=== PATIENT | male | born 1965 | race Caucasian/White ===

== ENCOUNTER 2016-10-30 13:15 | Inpatient (IN) ==
--- NOTE | 2016-10-30 13:48 | Emergency Department Note ---
Ni Wayne Hilary, am scribing for, and in the presence of, Reese Lei MD 13: 45. Do Wayne James D, MD, personally performed the services described in this documentation, ascribed by Emily Dan in my presence, and it is both accurate and complete [id number] . Arrival - Arrival Chief Complaint: Shortness of Breath Stated Complaint: shortness of breath ED Nursing Triage Note: pt to er 20 via ems coming as a transfer from [facility] er with c/o having sob for 5-6 months, pt was diagnosed with anemia/ chf/ enlarged spleen. pt comes for further eval. Mode of Arrival: Stretcher Limitations: No Limitations Source: Patient, RN Notes Reviewed Time Seen by Provider: 10/30/16 13:33 - History of Present Illness HPI Narrative: Pt is a 50 y/o white male brought into the ED via EMS from [facility] with c/o SOB which onset 5 months ago. Pt confirms SOB, legs swelling, intermittent chest pain but denies melena, blood in vomit or urine. No other complaints or problems stated in the ED. Pt was diagnosed of anemia, CHF and enlarged spleen. He takes Indocin as prescribed for Gout but one month ago started taking Aleve instead . Onset (ago): month(s) Consistency: constant Severity: moderate Severity scale (1-10): 2 Allergies/Adverse Reactions: Allergies Allergy/AdvReac Type Severity Reaction Status Date / Time No Known Allergies Allergy Unverified 10/30/16 13:27 Home Medications: Home Medications Medication Instructions Recorded Confirmed Type No Known Home Medications [No 10/30/16 10/30/16 History Known Home Medications] Review of System - Review of System 12 point system: reviewed and no additional remarkable complaints except as stated - Review of System Constitutional: Absent: fever Respiratory: Present: respiratory distress (SOB) Cardiovascular: Present: chest pain Gastrointestinal: Absent: hematemesis, melena, hematochezia Musculoskeletal: Present: leg pain (swelling) Medical,Surgical,& Family Hx - Medical History Hematology: History of: Anemia - Social History Smoking Status: Never smoker Frequency of Alcohol Use: None Type of Drug Use: None Exam Physical Examination: GENERAL: This is a well-nourished, well-developed in no apparent distress. VITAL SIGNS: Temperature: 97.7 Pulse: 93 Respiratory: 17 Blood Pressure: 131/ 87 O2Sat: 100 HEENT: Head is normocephalic and atraumatic. Pupils are equally round and reactive to light. Extraocular movement are intact. Oropharynx is benign with moist mucous membranes. NECK: Neck is soft and supple without tenderness. There are no masses. There is no lymphadenopathy. LUNGS: Lungs are clear to auscultation bilaterally. Chest rises symmetrically. There is no chest wall tenderness. CV: Heart is regular rate and rhythm without murmurs, rubs, or gallops. ABDOMEN: Abdomen is soft, non-tender to palpation. There are no abnormal masses palpated. There is evidence of spleenomegaly. Bowel sounds are present and active. SKIN: Pallor, Skin is warm and dry. No rash. EXTREMITIES: Patient has full range of motion without tenderness. There is 1+ pitting edema of his lower extremities. NEUROLOGIC: Awake, alert, and oriented x4. Cranial nerves II through XII are grossly intact. There are no motorsensory deficits. PSYCHIATRIC: Normal affect. Normal mood. Vital Signs: Vital Signs Temperature 97.7 F 10/30/16 13:24 Pulse Rate 93 H 10/30/16 13:24 Respiratory Rate 17 10/30/16 13:24 Blood Pressure 131/87 10/30/16 13:24 O2 Sat by Pulse Oximetry 100 10/30/16 13:24 Course - Consultations Consultation #1: Discussed with hospitalist. Patient will be admitted to their service. Patient will undergo blood transfusion. Time: 13:48 Results - Labs CBC & BMP: 10/30/16 14:00 10/30/16 14:00 Lab Results: I have reviewed the patients labs Labs: Reviewed lab performed at [facility]. Laboratory Tests 10/30/16 14:00 WBC 10.4 RBC 3.29 L Hgb 4.7 L* Hct 20.4 L MCV 62.0 L MCH 14 L MCHC 23.0 L RDW 23.7 H Plt Count 481 H Neut % (Auto) 79.5 H Lymph % (Auto) 9.5 L Neut # (Auto) 8.3 H Lymph # (Auto) 1.0 L [place] # (Auto) 0.9 H Percent Retic 5.1 H Retic Hgb Equivalent 13.0 L Laboratory Tests 10/30/16 10/30/16 10/30/16 14:00 14:00 14:20 Sodium 139 Potassium 4.7 Chloride 108 H Carbon Dioxide 21 BUN 29 H Creatinine 1.40 H Calcium 8.1 L Iron 14 L % Saturation 4.7 L Ferritin 5.0 L Total Bilirubin 2.10 H AST 98 H ALT 116 H Alkaline Phosphatase 134 H Troponin I 0.184 H B-Natriuretic Peptide 1287 H Total Protein 5.6 L Albumin 2.7 L Albumin/Globulin Ratio 0.9 L Urine pH 5.0 Ur Specific [place] 1.012 Urine Urobilinogen 2.0 H Urine RBC <1 Urine WBC <1 Urine Opiates Screen Ur Barbiturates Screen Ur Phencyclidine Scrn U Amphetamine/Methamph U Benzodiazepines Scrn U Cocaine Metab Screen U Cannabinoids Screen 10/30/16 14:20 Sodium Potassium Chloride Carbon Dioxide BUN Creatinine Calcium Iron % Saturation Ferritin Total Bilirubin AST ALT Alkaline Phosphatase Troponin I B-Natriuretic Peptide Total Protein Albumin Albumin/Globulin Ratio Urine pH Ur Specific [place] Urine Urobilinogen Urine RBC Urine WBC Urine Opiates Screen Negative Ur Barbiturates Screen Negative Ur Phencyclidine Scrn Negative U Amphetamine/Methamph Positive H U Benzodiazepines Scrn Negative U Cocaine Metab Screen Negative U Cannabinoids Screen Negative Laboratory Tests 10/30/16 10/30/16 10/30/16 14:00 14:00 14:20 Iron 14 L TIBC 296 % Saturation 4.7 L Ferritin 5.0 L Total Bilirubin 2.10 H AST 98 H ALT 116 H Alkaline Phosphatase 134 H Troponin I 0.184 H B-Natriuretic Peptide 1287 H Free T4 1.06 TSH 3rd Generation 1.580 Urine Opiates Screen Negative Ur Barbiturates Screen Negative Ur Phencyclidine Scrn Negative U Amphetamine/Methamph Positive H U Benzodiazepines Scrn Negative U Cocaine Metab Screen Negative U Cannabinoids Screen Negative - EKG EKG results: interpreted by ERMD - Impressions EKG: Normal sinus rhythm with rate of 90, nonspecific ST-T wave changes, normal axis. - Diagnostic Findings Procedure: Chest x-ray: report reviewed by me (Moderate cardiomegaly with the heart having a globular configuration which can be seen with cardiomyopathy or pericardial effusion. Mild CHF) Disposition Clinical Impression: Anemia, Excessive use of nonsteroidal anti-inflammatory drug (NSAID), Methamphetamine abuse, Congestive heart failure, Mild elevation of troponin Case discussed with: patient Disposition: Still a Patient Condition: Critical Time of Disposition: 13:47
--- NOTE | 2016-10-30 14:01 | XRay Report ---
Portable chest Date: 10/30/2016 Clinical history: Shortness of breath Comparison: None Technique: Portable AP sitting chest Findings: The heart is moderately enlarged with a globular configuration. Calcified granulomata/nodes. Minimal diffuse parenchymal findings especially in the lower lung zones. Unremarkable mediastinum with degenerative changes. Impression: Moderate cardiomegaly with the heart having a globular configuration which can be seen with cardiomyopathy or pericardial effusion. Mild CHF. PROCEDURE INTERPRETED AT [facility] Final Report Signed by: Dr. Polina Sumner
--- NOTE | 2016-10-30 14:03 | EKG Report ---
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
[2016-10-30 14:13] LABS: Basophils % 0.2 % (0.0-0.8); Eosinophils # 0.1 10*3/uL (0.0-0.87); Eosinophils % 1.2 % (0.00-10.9); Hematocrit 20.4 VOL% (42.0-52.0); Immature Granulocytes % 0.7 %; Immature Granulocytes Absolute 0.07 #; Lymphocytes % 9.5 % (21.2-54.2); Mean Corpuscular Hemoglobin 14 PG (27-34); Mean Platelet Volume 10.2 FL (9.6-12.0); Monocytes # 0.9 10*3/uL (0.11-0.8); Monocytes % 8.9 % (1.7-12.7); NRBC # 0.18 10*3/uL; Neutrophils # 8.3 10*3/uL (1.4-7.4); Neutrophils % 79.5 % (38.7-73.9); Platelet Count 481 T/CUMM (130-400); Red Blood Count 3.29 MC/CUMM (3.8-5.5); Red Cell Distribution Width 23.7 % (9.3-17.3); White Blood Count 10.4 T/CUMM (4-12)
[2016-10-30 14:27] LABS: Hemoglobin 4.7 GM/DL (14.0-18.0)
[2016-10-30 14:36] LABS: Apearance,Urine CLEAR (Clear); Bilirubin,Urine Negative (Negative); Blood, Urine Negative (Negative); Glucose,Urine (UA) Negative (Negative); Ketones,Urine Negative (Negative); Mucus,Urine Occasional /LPF (Occasional); Nitrite,Urine Negative (Negative); Protein,Urine Negative; RBC,Urine <1 /HPF (0-4); Urine Color Yellow (Yellow); Urine Specific Gravity 1.012 (1.001-1.035); WBC,Urine <1 /HPF (0-6)
[2016-10-30 14:42] LABS: % Iron Saturation 4.7 % (18-50); Albumin 2.7 G/DL (3.4-5.0); Bilirubin,Total 2.1 MG/DL (0.2-1.0); Calcium 8.1 MG/DL (8.5-10.1); Free T4 (Free Thyroxine) 1.06 NG/DL (0.76-1.46); Osmolality,Calculated 282.5 MOS/KG (273-304); Potassium 4.7 MMOL/L (3.5-5.1); Thyroid Stimulating Hormone 1.58 uIU/ml (0.358-3.74); Total Protein 5.6 G/DL (6.4-8.3); Troponin I Only 0.184 NG/ML (0.00-0.045)
[2016-10-30 14:44] LABS: Folate 19.1 NG/ML (5.4-24.0)
[2016-10-30 14:53] LABS: Barbiturates Screen,Urine Negative (Negative); Benzodiazepines Screen,Urine Negative (Negative); Cannabinoid Screen,Urine Negative (Negative); Opiate Screen,Urine Negative (Negative); Phencyclidine Screen,Urine Negative (Negative)
--- NOTE | 2016-10-30 15:31 | Hospitalist History & Physical ---
Assessment and Plan (1) Anemia Status: Acute Assessment and plan: Hemoglobin and hematocrit noted at 4.7 and 20.4 at the time of ED presentation was admitted to. We will admit to critical care, type and screen, transfuse and recheck hemoglobin and hematocrit in a.m. Stools were heme negative at [facility]; there is no active bleeding noted at the time of ED presentation. We will consult GI to evaluate and assist during the clinical encounter. Current Visit: Yes (2) Congestive heart failure Status: Acute Assessment and plan: Troponin was noted at 0.184 at the time of admission and BNP was grossly elevated at 1287. The patient has never been told that he had congestive heart failure, however I do feel that this is the case now. We will obtain serial cardiac enzymes, obtain echocardiogram to assess ventricular function. We will consult cardiology to evaluate and assist during the clinical encounter. Current Visit: Yes History of Present Illness Chief complaint: Anemia History of present illness: This is a 50-year-old male that presented to the ED at [facility] as a lateral transfer from [facility] for evaluation of anemia, congestive heart failure and splenomegaly.. The patient has a medical history significant for gouty arthritis and methamphetamine abuse. The patient reported the onset of symptoms 5 months prior to presentation at [facility]. The patient reports that he had been taking medication for gout, developed an allergy ,and stopped taking the medication. When he discovered the "allergy" he stopped taking his gout medication and started taking Aleve. This morning he reports that he became extremely short of breath and decided to present to the ED at [facility] for further evaluation. At the time of ED presentation at [facility], the patient was noted to be grossly anemic with a hemoglobin and hematocrit noted at 4.7 and 20.4. In addition, the patient was noted to have a BNP at 1287. Chest x-ray reported moderate cardiomegaly with a heart having a globular configuration which could be seen with either cardiomyopathy or pleural effusion and mild CHF. The patient was subsequently transferred to [facility] for a higher level of care. At the time of ED presentation at [place], the patient was notably jaundiced; however his vital signs were stable. Labs were obtained; complete blood count reported white blood cell count at 10.4, hemoglobin 4.7, hematocrit 20.4, MCV 62.0, MCH 14, MCHC 23.0, RDW at 23.7, platelet count 481, neutrophil % 79.5, lymphocytes percent #9.5, neutrophil #8.3, lymphocyte #1.0, monocyte #0.9, percent reticulocytes 5.1, reticulocyte hemoglobin equivalent 13.0. Chemistry panel reported sodium at 139, potassium 4.7, chloride 108, carbon dioxide 21, anion gap 14.7, BUN 29, creatinine 1.40, glucose 104, calculated osmolality 282.5, calcium 18, iron 14, TIBC 296, percentage saturation 4.7, ferritin 5.0, total bilirubin 2.10, AST 98, ALT 116, alkaline phosphatase 134, total protein 5.6, albumin 2.7. Cardiac enzymes reported a troponin at 0.184 and BNP at 1287. Free T4 was noted at 1.06 and TSH was noted at 1.580. Urinalysis reported urine urobilinogen at 2.0. Urine toxicology was positive for amphetamines/methamphetamines. After brief discussion with both Dr. Lei and Dr. Montelongo, the patient will be admitted to the hospitalist services for continuation of care. Due to the severity of his anemia, the patient will be placed in the critical care setting for close observation. Home Medications Medication Instructions Recorded Confirmed Type No Known Home Medications [No 10/30/16 10/30/16 History Known Home Medications] Allergies Allergy/AdvReac Type Severity Reaction Status Date / Time No Known Allergies Allergy Unverified 10/30/16 13:27 Medical,Surgical,& Family Hx - Medical History Hematology: History of: Anemia - Social History Smoking Status: Never smoker Frequency of Alcohol Use: None Type of Drug Use: None 12 point system: reviewed and no additional remarkable complaints except as stated Exam - Constitutional Vitals: Period Temp Pulse Resp BP Sys/Noel Pulse Ox Last 24 Hr 97.7 F 93 17 131/87 100 General appearance: normal weight, mild distress - Head Head exam: Present: normal inspection, normocephalic, atraumatic - Eye Eye exam: Present: scleral icterus, other (Jaundice to sclera) Pupils: Present: THERESE, normal accommodation - ENT ENT exam: Present: normal exam, normal external ear exam, normal oropharynx - Neck Neck exam: Present: normal inspection. Absent: lymphadenopathy, meningismus, tenderness, thyromegaly - Respiratory Respiratory exam: Present: clear to auscultation bilaterally. Absent: rales, rhonchi, stridor, wheezes - Cardiovascular Cardiovascular exam: Present: bradycardia, regular rate and rhythm. Absent: carotid bruit, diastolic murmur, gallop, JVD, rubs, systolic murmur - GI/Abdominal GI/Abdominal exam: Present: organomegaly (Splenomegaly noted). Absent: tenderness, rebound - Extremities Exam Extremities exam: Present: edema (+1 edema noted to lower extremity) - Neurological Exam Neurological exam: Present: alert, oriented X3, CN II-XII intact - Psychiatric Psychiatric exam: Present: flat affect - Skin Skin exam: Present: other Results - Labs CBC & BMP: 10/30/16 14:00 10/30/16 14:00 Lab Results: I have reviewed the past 24 hour labs
[2016-10-30 15:44] LABS: Anisocytosis 1+; Elliptocytes 1+; Platelet Estimate Increased; Polychromasia 1+
[2016-10-30] MEDS ORDERED: SODIUM CHLORIDE 0.9% 250 ML IV PRN ×2 (15:45→16:16)
--- NOTE | 2016-10-30 15:51 | Ultrasound Report ---
Exam: US abdomen Date: 10/30/2016 2:49 PM Comparison: None Indication: Generalized abdominal pain Technique:[Multiple transabdominal real-time scans were obtained of the abdomen. Color flow scans obtained. Ultrasound images were captured and stored.] Findings: Contracted gallbladder with no obvious gallstones. Wall of gallbladder measures 4 mm with possible minimal pericholecystic fluid. CBD is normal in size measuring 4.7 mm. Minimal elongation of the right lobe of the liver with no masses. The spleen is minimally enlarged with a splenic index of 840. Right kidney measures 113 mm length. Left kidney measures 107 mm in length. The pancreas and distal aorta including the aortic bifurcation are obscured by bowel gas. The visualized aorta is normal in size with color flow documented in the IVC. Minimal ascites. Impression: Contracted gallbladder which makes it difficult to evaluate for possible gallstones. No obvious gallstones were identified at the time of the scans. The wall of the gallbladder appears thickened with equivocal minimal pericholecystic fluid. Biliary scan with ejection fraction may be helpful for further evaluation since these findings could be related to acute cholecystitis. Elongation of the right lobe liver with minimal splenomegaly. Minimal ascites. The pancreas and aorta are obscured by bowel gas. The Ultrasound images were captured and stored. PROCEDURE INTERPRETED AT [facility] OF RADIOLOG[facility] Final Report Signed by: Dr. Polina Sumner
[2016-10-30] MEDS ORDERED: ONDANSETRON 4 MG/2 ML VIAL IV PRN (16:16)
[2016-10-30] MEDS ORDERED: MORPHINE 2 MG/1 ML SYRINGE IV PRN (16:16)
--- NOTE | 2016-10-30 17:35 | ECHO Report ---
Milton Marino Exam Date: 10/30/2016 16:19 Referring Physician: Technologist: Mony Stanley RDCS Age: 50 Ht (in): 72 Wt (lb): 210 Gender: M Exam Location: [facility] Echo Indications: Anemia, Heart failure, unspecified, Shortness of breath, hx Meth abuse BP: 131 / 87 HR: 93 Rhythm: Sinus Technical Quality: Good IMPRESSIONS Severely reduced LV systolic function with regional wall motion as described below, ejection fraction 25%. Normal diastolic function. Mildly dilated left ventricle with mild concentric left ventricular hypertrophy. Mild biatrial enlargement. Mildly dilated right ventricle. Moderate mitral regurgitation. Severe tricuspid regurgitation. Mild pulmonary regurgitation. Pulmonary hypertension with pulmonary artery pressure estimated at 59 mmHg. Trivial pericardial effusion. MEASUREMENTS (Male / Female) Normal Values 2D ECHO LV Diastolic Diameter PLAX 6.4 cm 4.2 - 5.9 / 3.9 - 5.3 cm LV Systolic Diameter PLAX 5.8 cm LV Fractional Shortening PLAX 9.3 % IVS Diastolic Thickness 1.3 cm 0.6 - 1.0 / 0.6 - 0.9 cm LVPW Diastolic Thickness 1.4 cm 0.6 - 1.0 / 0.6 - 0.9 cm RV Internal Dim ED PLAX 4.1 cm Aortic Root Diameter 3.7 cm LA Systolic Diameter LX 4.8 cm 3.0 - 4.0 / 2.7 - 3.8 cm DOPPLER TR Peak Velocity 350.0 cm/s TR Peak Gradient 49.0 mmHg FINDINGS Left Ventricle Mildly increased left ventricular cavity size. Mild left ventricular hypertrophy. Left ventricular ejection fraction is estimated at 25 %. There is some global hypokinesis, although the septum, posterior and inferior gross appear more severely hypokinetic, if not akinetic, and comparison to the remainder of the myocardium. Right Ventricle Mildly increased right ventricular size. Right Atrium Mildly increased right atrial size. Left Atrium Mildly increased left atrial size Mitral Valve Mildly thickened mitral valve. Moderate mitral valve regurgitation. Aortic Valve Aortic valve sclerosis without stenosis or regurgitation. Tricuspid Valve Morphologically normal tricuspid valve. Severe tricuspid valve regurgitation. Tricuspid regurgitation velocities suggest a PAP of 59 mmHg. Pulmonic Valve Morphologically normal pulmonic valve. Mild pulmonary valve regurgitation. Pericardium Trivial pericardial effusion. Aorta Normal ascending aorta dimension. Chrissy Hernandez MD (Electronically Signed) Final Date: 30 October 2016 17:35
[2016-10-30] MEDS ORDERED: FUROSEMIDE 40 MG/4 ML VIAL IV ONE (18:28)
[2016-10-30] MEDS ORDERED: FUROSEMIDE 20 MG/2 ML VIAL IV ONE (18:29)
[2016-10-30 21:33] LABS: Hepatitis A Ab IgM Quant 0.08 Index; Hepatitis A Ab IgM Result Negative (Negative); Hepatitis B Core IgM Result Negative (Negative); Hepatitis B Surface Ag Quant < 0.10 Index; Hepatitis B Surface Ag Result Negative (Negative); Hepatitis C Virus Ab Quant 0.08 Index; Hepatitis C Virus Ab Result Negative (Negative)
[2016-10-31 04:51] LABS: Albumin 2.6 G/DL (3.4-5.0); Bilirubin,Total 3.2 MG/DL (0.2-1.0); Calcium 8.6 MG/DL (8.5-10.1); Osmolality,Calculated 278.7 MOS/KG (273-304); Total Protein 5.8 G/DL (6.4-8.3)
[2016-10-31 05:02] LABS: Basophils # 0.1 10*3/uL (0.0-0.2); Basophils % 0.6 % (0.0-0.8); Eosinophils # 0.3 10*3/uL (0.0-0.87); Eosinophils % 3.1 % (0.00-10.9); Hemoglobin 7.9 GM/DL (14.0-18.0); Immature Granulocytes % 0.8 %; Immature Granulocytes Absolute 0.08 #; Lymphocytes # 1.1 10*3/uL (1.4-4.0); Lymphocytes % 10.1 % (21.2-54.2); Mean Corpuscular HGB Conc 27.2 GM/DL (32-36); Mean Corpuscular Hemoglobin 18 PG (27-34); Mean Platelet Volume 9.6 FL (9.6-12.0); Monocytes # 0.8 10*3/uL (0.11-0.8); Monocytes % 8.1 % (1.7-12.7); NRBC # 0.12 10*3/uL; Neutrophils % 77.3 % (38.7-73.9); Platelet Count 441 T/CUMM (130-400); Red Blood Count 4.46 MC/CUMM (3.8-5.5); Red Cell Distribution Width 27.5 % (9.3-17.3); White Blood Count 10.4 T/CUMM (4-12)
[2016-10-31 07:58] LABS: INR 1.3; PT Patient Result 14.5 SECS; Partial Thromboplastin Time 32.2 SECS (0-40)
[2016-10-31] MEDS ORDERED: FUROSEMIDE 40 MG/4 ML VIAL IV ONE (09:07)
[2016-10-31] MEDS ORDERED: SODIUM CHLORIDE 0.9% 250 ML IV PRN ×2 (10:21→10:34)
--- NOTE | 2016-10-31 11:12 | Gastrointestinal Consult Note ---
Assessment and Plan (1) Elevated LFTs Status: Acute Assessment and plan: 10/31-findings of elevated LFTs on admission with no prior history. Long-term history of alcohol use and occasional methamphetamines. Negative hepatitis panel, negative MICHELINE. Ultrasound findings noted as below. In addition findings of cardiomegaly, elevated BNP with cardiac workup pending. Continue to monitor at this time. Plan an addendum to followed by Dr. Givens Current Visit: Yes (2) Anemia Status: Acute Assessment and plan: 10/23-findings of symptomatic anemia with H/H of 4 without overt bleeding or reports of melena/hematochezia. Recent NSAID use over the past month. Complaint of dysphagia, epigastric pain with eating. GERD. No prior endoscopy history in the past. Cardiology consult pending therefore any endoscopy will be postponed until cardiac clearance can be obtained. Plan an addendum to follow Dr. Givens. Current Visit: Yes History of Present Illness Chief complaint: Anemia, elevated LFTs History of present illness: Mr. Marino is a 50 year old male who was admitted to the hospital and yesterday with complaints of shortness of breath times several weeks. Patient is a fairly good historian however information is also obtained from chart review. Patient states that he has had shortness of breath over the last several weeks however it worsened over the last couple of days. He reported to [facility] for further evaluation and at that time was found to have a hemoglobin and hematocrit of 4.7/20.4 he was also found that time to have an elevated BNP at 1287 with findings of moderate cardiomegaly on chest x- ray. He was also found to have splenomegaly and at that point was transferred to our facility for further evaluation. Patient states that he has a history of gout and has been taking Indocin in the past however he discontinued this himself approximately a month ago due to what he calls a "allergy". At that time he began taking Aleve which he reports only taking as needed and not daily over the last month with no more than 2 a day. He denies any other NSAID use at this time. He states that he has also had an increase in epigastric discomfort and some reports of dysphagia to solids when eating. He also complains of some increased belching and bloating as of recent. Denies any melena or hematochezia associated with this. Denies any recent weight loss, fever or chills. He denies any prior history of anemia in the past and denies any blood transfusions. He states he does not smoke and states he quit drinking years ago however prior to this he had a long-term history of heavy use. He also reports that he does use meth with his last use several days ago. He states that he has only been to the doctor twice in his life and is not aware of any chronic medical conditions. She was also found on admission to have elevated LFTs with a bilirubin of 2.1, now elevated at 3.2, AST 98, ALT 116 , alkaline phosphatase 134. Albumin noted 2.7, INR 1.3. Hemoglobin is 7.9 following 3 units packed red blood cells since to be transfused 2 more today. Negative MICHELINE noted. Iron studies noted with iron 14, TIBC 296, saturation 4.7, and ferritin 5. Abdominal ultrasound showed contracted gallbladder with questionable thickened wall, ligation of right lobe of liver with minimal splenomegaly and ascites. Home Medications Medication Instructions Recorded Confirmed Type No Known Home Medications [No 10/30/16 10/30/16 History Known Home Medications] Allergies Allergy/AdvReac Type Severity Reaction Status Date / Time No Known Allergies Allergy Verified 10/30/16 16:23 Medical,Surgical,& Family Hx - Medical History Rheumatology: History of;: Gout (hasn't taken his med in a month) Hematology: History of: Anemia - Social History Smoking Status: Never smoker Frequency of Alcohol Use: None Type of Drug Use: Methamphetamine 12 point system: reviewed and no additional remarkable complaints except as stated - Constitutional Constitutional: Present: as per HPI - EENT Eyes: Present: as per HPI Ears: Present: as per HPI Nose, mouth and throat: Present: as per HPI, dysphagia - Cardiovascular Cardiovascular: Present: as per HPI, dyspnea - Respiratory Respiratory: Present: as per HPI - Gastrointestinal Gastrointestinal: Present: as per HPI, abdominal pain (Epigastric postprandial) , dyspepsia, dysphagia, heartburn - Genitourinary Genitourinary: Present: as per HPI - Musculoskeletal Musculoskeletal: Present: as per HPI - Neurological Neurological: Present: as per HPI - Psychiatric Psychiatric: Present: as per HPI - Endocrine Endocrine: Present: as per HPI - Hematologic/Lymphatic Hematologic/Lymphatic: Present: as per HPI Exam - Constitutional Vitals: Period Temp Pulse Resp BP Sys/Noel Pulse Ox Last 24 Hr 97.4 F-98.7 F 90-117 17-31 96-149/61-93 97-100 General appearance: normal weight, no acute distress - Head Head exam: Present: normal inspection, normocephalic - Eye Eye exam: Present: other (Lids and conjunctivae unremarkable). Absent: scleral icterus - ENT ENT exam: Present: normal exam, normal oropharynx - Neck Neck exam: Present: normal inspection - Respiratory Respiratory exam: Present: clear to auscultation bilaterally. Absent: rales, rhonchi, wheezes - Cardiovascular Cardiovascular exam: Present: regular rate and rhythm. Absent: diastolic murmur , JVD, systolic murmur - GI/Abdominal GI/Abdominal exam: Present: normal bowel sounds, soft. Absent: ascites, distended, mass, organomegaly, tenderness - Extremities Exam Extremities exam: Present: normal inspection, full ROM - Back Exam Back exam: Present: normal inspection - Neurological Exam Neurological exam: Present: alert, oriented X3 - Psychiatric Psychiatric exam: Present: normal affect, normal mood - Skin Skin exam: Present: normal color, warm, dry Results - Labs CBC & BMP: 10/31/16 03:03 10/31/16 03:03 Lab Results: I have reviewed the past 24 hour labs Quality Measures - VTE Contraindication to Pharmacological VTE Prophylaxis: Active Bleeding
--- NOTE | 2016-10-31 11:34 | Cardiology Consult Note ---
<Kaylie Hines E - Last Filed: 10/31/16 12:33> Assessment and Plan - Time spent with patient Time spent with patient: Greater than 30 minutes (due to assessment, plan, lengthy discussion with patient/family and documentation) (1) Cardiomyopathy Status: Acute Assessment and plan: See plan of care listed below. Current Visit: Yes (2) Congestive heart failure Status: Acute Assessment and plan: See plan of care listed below. Current Visit: Yes (3) Anemia Status: Acute Assessment and plan: See plan of care listed below. Current Visit: Yes (4) Methamphetamine abuse Status: Chronic Assessment and plan: See plan of care listed below. Current Visit: Yes (5) Elevated LFTs Status: Acute Assessment and plan: See plan of care listed below. Current Visit: Yes (6) Excessive use of nonsteroidal anti-inflammatory drug (NSAID) Status: Chronic Assessment and plan: See plan of care listed below. Current Visit: Yes History of Present Illness - Data of Consult Patient: new to practice Consult date: 10/31/16 Requesting Physician: Joan Montelongo - Consult Narrative Reason for consult: new onset CHF History of present illness: [employer]: new to Dr. Grant Mr. Marino is a 50 year old male with a history of gouty arthritis, alcohol abuse, and methamphetamine abuse. He does have a family history of CAD with his father having had 2 AL's and CABG with stents. He is a former drinker. Mr. Marino was transferred to our facility from [facility] yesterday for further evaluation of shortness of breath and anemia. Upon arrival to [facility] he was found to have an H&H of 4.7 and 20.4. According to his records, he has been taking medication for gout but developed an allergy and discontinued this medication. At that time he began taking Aleve and has been taking it for the past several months. GI has been consulted to see him. He also had a CT scan of the abdomen/pelvis that showed small pericardial effusion, right pleural effusion, normal liver, splenomegaly, mesenteric, paraaortic and inguinal lymphadenopathy, ascites, and anasarca. General surgery has been consulted for biopsy of inguinal lymphadenopathy. Apparently his shortness of breath began approximately 5 months ago and has progressively worsened. He says that he has dyspnea all the time but that it is worse upon exertion. He does note some occasional chest tightness that lasts for approximately 2-3 minutes and is localized to the midsternal region. It is not associated with rest or exertion. He denies palpitations, dizziness, syncope, melena, hematochezia, epistaxis, hematuria. BNP on admission was 1287. Echocardiogram done 10/30/16 revealed EF 25%, mild LVH, mild biatrial enlargement, moderate mitral regurgitation, severe tricuspid regurgitation, mild pulmonary regurgitation, pulmonary hypertension with PAP estimated to be 59 mmHg. He was also noted to have a trivial pericardial effusion. We are consulted to see him due to new onset CHF. His son is at the bedside and notes his heart rate got up to 200 bpm per the bedside monitor in CCU last night and the patient states he felt lightheaded at that time. I see no documentation of this or any other tachyarrhythmias. Mr. Marino states there were also issues with his leads staying in place. We will continue to monitor for dysrhythmias. Will further discuss with Dr. Grant and await additional recommendations. ASSESSMENT/PLAN: 1. Cardiomyopathy - New onset, unsure whether ischemic or nonischemic. Suspect this is significantly worsened by his long history of alcohol and meth abuse. EF 25% per echocardiogram. Patient will need left heart catheterization for further evaluation, but given his severe anemia, I suspect we will need to hold off until GI has completed their evaluation and his blood counts have stabilized. At this time, dual antiplatelet therapy and anticoagulation would be contraindicated. 2. New onset CHF - Will start low dose beta marilynn and ronnie inhibitor as well as IV Lasix daily. Will monitor blood pressure. 3. Anemia - GI has been consulted to see him for further evaluation. He has received 3 units of blood thus far and H&H is improved to 7.9 and 29.0 today. 4. Methamphetamine abuse - I had a long discussion with the patient and his family who are present regarding the need for total cessation of all illegal substances. If the patient's heart function does not improve, it is likely he will end up needing an AICD. Given his drug use, most insurance companies will not pay for these to be placed in individuals with patients who have use illegal substances. The patient and his family voiced understanding. We will consult case management to help with initiation of some form of insurance assistance. 5. Elevated LFTs - GI is following. 6. Exessive use of NSAIDS CC: Joan Montelongo MD - Home Medications and Allergies Home Medications: Home Medications Medication Instructions Recorded Confirmed Type No Known Home Medications [No 10/30/16 10/30/16 History Known Home Medications] Allergies/Adverse Reactions: Allergies Allergy/AdvReac Type Severity Reaction Status Date / Time No Known Allergies Allergy Verified 10/30/16 16:23 Review of systems: - Constitutional: Present: fatigue, As per HPI. Absent: anorexia, chills, daytime sleepiness, excessive sweating, fever(s), frequent falls, headache(s), increased appetite, lethargy, malaise, night sweats, stops breathing during sleep, weakness, weight gain, weight loss. - EENT Eyes: Present: As per HPI. Absent: blurry vision, diplopia, loss of vision Ears: Present: As per HPI. Absent: decreased hearing, ear discharge, ear pain Nose, mouth and throat: Present: As per HPI. Absent: dysphagia, epistaxis, headache(s), hoarseness, lip swelling, nasal congestion, neck mass, neck pain, sinus pressure, sore throat, throat swelling, tongue swelling, vertigo - Cardiovascular: Present: chest pain at rest, chest pain with activity, dyspnea , dyspnea on exertion, edema, lightheadedness, as per HPI. Absent: claudication, diaphoresis, radiating jaw, neck or arm pain, orthopnea, palpitations, PND - Respiratory: Present: dyspnea, dyspnea on exertion, as per HPI. Absent: cough , hemoptysis, wheezing, snoring, pain on inspiration - Gastrointestinal: Present: As per HPI. Absent: abdominal pain, bloating, change in bowel habits, constipation, diarrhea, heartburn, hematemesis, hematochezia, loose stools, melena, nausea, vomiting - Genitourinary: Present: As per HPI. Absent: difficulty urinating, dysuria, flank pain, hematuria, nocturia, urinary frequency, urinary incontinence - Musculoskeletal: Present: As per HPI. Absent: arthralgias, back pain, joint swelling, limited range of motion, muscle cramps, muscle weakness, myalgias - Neurological: Present: As per HPI. Absent: abnormal gait, abnormal speech, behavioral changes, confusion, convulsions, disequilibrium, dizziness, focal weakness, frequent falls, headache(s), memory loss, numbness, paresthesias, radicular pain, syncope, tremor(s) - Psychiatric: Present: As per HPI. Absent: anxiety, confusion, depression, panic attacks - Endocrine: Present: fatigue, As per HPI. Absent: cold intolerance, heat intolerance, polydipsia, polyphagia - Hematologic/Lymphatic: Present: As per HPI. Absent: easy bleeding, easy bruising, lymphadenopathy Medical,Surgical,& Family Hx - Medical History Rheumatology: History of;: Gout (hasn't taken his med in a month) Hematology: History of: Anemia - Social History Smoking Status: Never smoker Frequency of Alcohol Use: None Type of Drug Use: Methamphetamine Marital Status: Single Lives With:: Significant Other Functional capacity: independent ambulation Physical Examination Vital Signs Temp Pulse Resp BP Pulse Ox 97.7 F 93 H 17 131/87 100 10/30/16 13:24 10/30/16 13:24 10/30/16 13:24 10/30/16 13:24 10/30/16 13:24 Other: General appearance: Pleasant and cooperative. Normal weight, no acute distress. Appears chronically ill and disheveled. - Head Head exam: Present: normal inspection, normocephalic, atraumatic. Absent: hematoma, laceration - Eye Eye exam: Present: EOMI. Absent: conjunctival injection, nystagmus, periorbital swelling, scleral icterus, laceration to eyelids Pupils: Present: PERRL. Absent: constricted, dilated, fixed, irregular, unequal - ENT ENT exam: Present: Edentulous of numerous teeth, normal external ear exam - Neck Neck exam: Present: normal inspection. Absent: lymphadenopathy, meningismus, tenderness, thyromegaly - Respiratory Respiratory exam: Present: Scant basilar rales posteriorly, otherwise clear to auscultation bilaterally. Absent: accessory muscle use, chest wall tenderness - Cardiovascular Cardiovascular exam: Present: regular rate and rhythm. Absent: carotid bruit, gallop, JVD, rubs, murmur - GI/Abdominal GI/Abdominal exam: Present: normal bowel sounds, soft. Absent: distended, firm , tenderness, rebound. - Extremities Exam Extremities exam: Present: normal inspection, normal capillary refill. Upper extremity pulses 2+. Lower extremity pulses 2+. Trace pretibial edema. Absent : calf tenderness -Musculoskeletal Exam Musculoskeletal: Present: No Fluid Collection, No Pain, Normal Range of Motion - Back Exam Back exam: Present: normal inspection. Absent: muscle spasm, vertebral tenderness - Neurological Exam Neurological exam: Present: alert, oriented X3, grossly intact without resting or essential tremor - Psychiatric Psychiatric exam: Present: normal affect, normal mood - Skin Skin exam: Present: jaundiced, warm, dry, intact. Absent: cyanosis, diaphoretic , rash, urticaria Result/EKG - Labs CBC & BMP: 10/31/16 03:03 10/31/16 03:03 Lab Results: I have reviewed the past 24 hour labs Labs: Laboratory Results - last 24 hr 10/30/16 10/30/16 10/30/16 14:00 14:00 14:00 WBC 10.4 RBC 3.29 L Hgb 4.7 L* Hct 20.4 L MCV 62.0 L MCH 14 L MCHC 23.0 L RDW 23.7 H Plt Count 481 H MPV 10.2 Neut % (Auto) 79.5 H Lymph % (Auto) 9.5 L [place] % (Auto) 8.9 Eos % (Auto) 1.2 Baso % (Auto) 0.2 Neut # (Auto) 8.3 H Lymph # (Auto) 1.0 L [place] # (Auto) 0.9 H Eos # (Auto) 0.1 Baso # (Auto) 0.0 Immature Gran % 0.7 Nucleated RBC % 1.7 Immature Gran # 0.07 Nucleated RBCs # 0.18 Platelet Estimate Increased Polychromasia 1+ Anisocytosis 1+ Elliptocytes 1+ ESR Westergren Absolute Retic 0.2 Percent Retic 5.1 H Retic Hgb Equivalent 13.0 L INR PT Patient/Control Mix Circ Anticoag PTT Sodium Potassium Chloride Carbon Dioxide Anion Gap BUN Creatinine GFR Calculation BUN/Creatinine Ratio Glucose Calculated Osmolality Calcium Magnesium Iron TIBC % Saturation Ferritin Total Bilirubin Direct Bilirubin AST ALT Alkaline Phosphatase Lactate Dehydrogenase Troponin I B-Natriuretic Peptide Total Protein Albumin Globulin Albumin/Globulin Ratio Vitamin B12 890 Folate 19.1 Free T4 TSH 3rd Generation Urine Color Urine Appearance Urine pH Ur Specific [place] Urine Protein Urine Glucose (UA) Urine Ketones Urine Blood Urine Nitrate Urine Bilirubin Urine Urobilinogen Urine Leukocytes Urine RBC Urine WBC Urine Mucus Ur Culture Indicated? Urine Opiates Screen Ur Barbiturates Screen Ur Phencyclidine Scrn U Amphetamine/Methamph U Benzodiazepines Scrn U Cocaine Metab Screen U Cannabinoids Screen MICHELINE Screen Hepatitis A IgM Ab Hep Bs Antigen Hep B Core IgM Ab Hepatitis C Antibody Blood Type O POSITIVE Antibody Screen Negative LUCERO (IgG-AHG) LUCERO, Polyspecific Crossmatch Blood Bank Comment 10/30/16 10/30/16 10/30/16 14:00 14:00 14:00 WBC RBC Hgb Hct MCV MCH MCHC RDW Plt Count MPV Neut % (Auto) Lymph % (Auto) [place] % (Auto) Eos % (Auto) Baso % (Auto) Neut # (Auto) Lymph # (Auto) [place] # (Auto) Eos # (Auto) Baso # (Auto) Immature Gran % Nucleated RBC % Immature Gran # Nucleated RBCs # Platelet Estimate Polychromasia Anisocytosis Elliptocytes ESR Westergren Absolute Retic Percent Retic Retic Hgb Equivalent INR PT Patient/Control Mix Circ Anticoag PTT Sodium 139 Potassium 4.7 Chloride 108 H Carbon Dioxide 21 Anion Gap 14.7 BUN 29 H Creatinine 1.40 H GFR Calculation 73 BUN/Creatinine Ratio 20.00 Glucose 104 Calculated Osmolality 282.5 Calcium 8.1 L Magnesium Iron 14 L TIBC 296 % Saturation 4.7 L Ferritin 5.0 L Total Bilirubin 2.10 H Direct Bilirubin 1.00 H AST 98 H ALT 116 H Alkaline Phosphatase 134 H Lactate Dehydrogenase 244 Troponin I 0.184 H B-Natriuretic Peptide 1287 H Total Protein 5.6 L Albumin 2.7 L Globulin 2.9 Albumin/Globulin Ratio 0.9 L Vitamin B12 Folate Free T4 1.06 TSH 3rd Generation 1.580 Urine Color Urine Appearance Urine pH Ur Specific [place] Urine Protein Urine Glucose (UA) Urine Ketones Urine Blood Urine Nitrate Urine Bilirubin Urine Urobilinogen Urine Leukocytes Urine RBC Urine WBC Urine Mucus Ur Culture Indicated? Urine Opiates Screen Ur Barbiturates Screen Ur Phencyclidine Scrn U Amphetamine/Methamph U Benzodiazepines Scrn U Cocaine Metab Screen U Cannabinoids Screen MICHELINE Screen Hepatitis A IgM Ab Hep Bs Antigen Hep B Core IgM Ab Hepatitis C Antibody Blood Type Antibody Screen LUCERO (IgG-AHG) LUCERO, Polyspecific Crossmatch Blood Bank Comment 10/30/16 10/30/16 10/30/16 14:00 14:00 14:00 WBC RBC Hgb Hct MCV MCH MCHC RDW Plt Count MPV Neut % (Auto) Lymph % (Auto) [place] % (Auto) Eos % (Auto) Baso % (Auto) Neut # (Auto) Lymph # (Auto) [place] # (Auto) Eos # (Auto) Baso # (Auto) Immature Gran % Nucleated RBC % Immature Gran # Nucleated RBCs # Platelet Estimate Polychromasia Anisocytosis Elliptocytes ESR Westergren Absolute Retic Percent Retic Retic Hgb Equivalent INR PT Patient/Control Mix Circ Anticoag PTT Sodium Potassium Chloride Carbon Dioxide Anion Gap BUN Creatinine GFR Calculation BUN/Creatinine Ratio Glucose Calculated Osmolality Calcium Magnesium Iron TIBC % Saturation Ferritin Total Bilirubin Direct Bilirubin AST ALT Alkaline Phosphatase Lactate Dehydrogenase Troponin I B-Natriuretic Peptide Total Protein Albumin Globulin Albumin/Globulin Ratio Vitamin B12 Folate Free T4 TSH 3rd Generation Urine Color Urine Appearance Urine pH Ur Specific [place] Urine Protein Urine Glucose (UA) Urine Ketones Urine Blood Urine Nitrate Urine Bilirubin Urine Urobilinogen Urine Leukocytes Urine RBC Urine WBC Urine Mucus Ur Culture Indicated? Urine Opiates Screen Ur Barbiturates Screen Ur Phencyclidine Scrn U Amphetamine/Methamph U Benzodiazepines Scrn U Cocaine Metab Screen U Cannabinoids Screen MICHELINE Screen Negative (<1:160) Hepatitis A IgM Ab Negative Hep Bs Antigen Negative Hep B Core IgM Ab Negative Hepatitis C Antibody Negative Blood Type Antibody Screen LUCERO (IgG-AHG) Negative LUCERO, Polyspecific Negative Crossmatch Blood Bank Comment 10/30/16 10/30/16 10/30/16 14:20 14:20 Unknown WBC RBC Hgb Hct MCV MCH MCHC RDW Plt Count MPV Neut % (Auto) Lymph % (Auto) [place] % (Auto) Eos % (Auto) Baso % (Auto) Neut # (Auto) Lymph # (Auto) [place] # (Auto) Eos # (Auto) Baso # (Auto) Immature Gran % Nucleated RBC % Immature Gran # Nucleated RBCs # Platelet Estimate Polychromasia Anisocytosis Elliptocytes ESR Westergren 6 Absolute Retic Percent Retic Retic Hgb Equivalent INR PT Patient/Control Mix Circ Anticoag PTT Sodium Potassium Chloride Carbon Dioxide Anion Gap BUN Creatinine GFR Calculation BUN/Creatinine Ratio Glucose Calculated Osmolality Calcium Magnesium Iron TIBC % Saturation Ferritin Total Bilirubin Direct Bilirubin AST ALT Alkaline Phosphatase Lactate Dehydrogenase Troponin I B-Natriuretic Peptide Total Protein Albumin Globulin Albumin/Globulin Ratio Vitamin B12 Folate Free T4 TSH 3rd Generation Urine Color Yellow Urine Appearance Clear Urine pH 5.0 Ur Specific [place] 1.012 Urine Protein Negative Urine Glucose (UA) Negative Urine Ketones Negative Urine Blood Negative Urine Nitrate Negative Urine Bilirubin Negative Urine Urobilinogen 2.0 H Urine Leukocytes Negative Urine RBC <1 Urine WBC <1 Urine Mucus Occasional Ur Culture Indicated? Not indicated Urine Opiates Screen Negative Ur Barbiturates Screen Negative Ur Phencyclidine Scrn Negative U Amphetamine/Methamph Positive H U Benzodiazepines Scrn Negative U Cocaine Metab Screen Negative U Cannabinoids Screen Negative MICHELINE Screen Hepatitis A IgM Ab Hep Bs Antigen Hep B Core IgM Ab Hepatitis C Antibody Blood Type Antibody Screen LUCERO (IgG-AHG) LUCERO, Polyspecific Crossmatch Blood Bank Comment 10/30/16 10/31/16 10/31/16 Unknown 03:02 03:03 WBC 10.4 RBC 4.46 D Hgb 7.9 L D Hct 29.0 L MCV 65.0 L MCH 18 L MCHC 27.2 L RDW 27.5 H Plt Count 441 H MPV 9.6 Neut % (Auto) 77.3 H Lymph % (Auto) 10.1 L [place] % (Auto) 8.1 Eos % (Auto) 3.1 Baso % (Auto) 0.6 Neut # (Auto) 8.0 H Lymph # (Auto) 1.1 L [place] # (Auto) 0.8 Eos # (Auto) 0.3 Baso # (Auto) 0.1 Immature Gran % 0.8 Nucleated RBC % 1.2 Immature Gran # 0.08 Nucleated RBCs # 0.12 Platelet Estimate Polychromasia Anisocytosis Elliptocytes ESR Westergren Absolute Retic Percent Retic Retic Hgb Equivalent INR PT Patient/Control Mix Circ Anticoag PTT Sodium Potassium Chloride Carbon Dioxide Anion Gap BUN Creatinine GFR Calculation BUN/Creatinine Ratio Glucose Calculated Osmolality Calcium Magnesium Iron TIBC % Saturation Ferritin Total Bilirubin Direct Bilirubin AST ALT Alkaline Phosphatase Lactate Dehydrogenase Troponin I B-Natriuretic Peptide Total Protein Albumin Globulin Albumin/Globulin Ratio Vitamin B12 Folate Free T4 TSH 3rd Generation Urine Color Urine Appearance Urine pH Ur Specific [place] Urine Protein Urine Glucose (UA) Urine Ketones Urine Blood Urine Nitrate Urine Bilirubin Urine Urobilinogen Urine Leukocytes Urine RBC Urine WBC Urine Mucus Ur Culture Indicated? Urine Opiates Screen Ur Barbiturates Screen Ur Phencyclidine Scrn U Amphetamine/Methamph U Benzodiazepines Scrn U Cocaine Metab Screen U Cannabinoids Screen MICHELINE Screen Hepatitis A IgM Ab Hep Bs Antigen Hep B Core IgM Ab Hepatitis C Antibody Blood Type O POSITIVE Cancelled Antibody Screen Cancelled Cancelled LUCERO (IgG-AHG) LUCERO, Polyspecific Crossmatch See Detail See Detail Blood Bank Comment Cancelled Cancelled 10/31/16 10/31/16 03:03 07:42 WBC RBC Hgb Hct MCV MCH MCHC RDW Plt Count MPV Neut % (Auto) Lymph % (Auto) [place] % (Auto) Eos % (Auto) Baso % (Auto) Neut # (Auto) Lymph # (Auto) [place] # (Auto) Eos # (Auto) Baso # (Auto) Immature Gran % Nucleated RBC % Immature Gran # Nucleated RBCs # Platelet Estimate Polychromasia Anisocytosis Elliptocytes ESR Westergren Absolute Retic Percent Retic Retic Hgb Equivalent INR 1.3 PT Patient/Control Mix 14.5 Circ Anticoag PTT 32.2 Sodium 138 Potassium 4.0 Chloride 105 Carbon Dioxide 22 Anion Gap 15.0 BUN 24 H Creatinine 1.30 GFR Calculation 79 BUN/Creatinine Ratio 18.00 Glucose 91 Calculated Osmolality 278.7 Calcium 8.6 Magnesium 2.0 Iron TIBC % Saturation Ferritin Total Bilirubin 3.20 H Direct Bilirubin AST 77 H ALT 112 H Alkaline Phosphatase 130 H Lactate Dehydrogenase Troponin I B-Natriuretic Peptide Total Protein 5.8 L Albumin 2.6 L Globulin 3.2 Albumin/Globulin Ratio 0.8 L Vitamin B12 Folate Free T4 TSH 3rd Generation Urine Color Urine Appearance Urine pH Ur Specific [place] Urine Protein Urine Glucose (UA) Urine Ketones Urine Blood Urine Nitrate Urine Bilirubin Urine Urobilinogen Urine Leukocytes Urine RBC Urine WBC Urine Mucus Ur Culture Indicated? Urine Opiates Screen Ur Barbiturates Screen Ur Phencyclidine Scrn U Amphetamine/Methamph U Benzodiazepines Scrn U Cocaine Metab Screen U Cannabinoids Screen [place]HE[place] Screen Hepatitis A IgM Ab Hep Bs Antigen Hep B Core IgM Ab Hepatitis C Antibody Blood Type Antibody Screen LUCERO (IgG-AHG) LUCERO, Polyspecific Crossmatch Blood Bank Comment - EKG EKG results: interpreted by me, sinus rhythm (with ST-T abnormality) Quality Measures - VTE Contraindication to Pharmacological VTE Prophylaxis: Active Bleeding <John Grant - Last Filed: 10/31/16 14:05> History of Present Illness - Consult Narrative History of present illness: Cardiology addendum Severe anemia 4.7 and 20.4 respectively and received 3 units packed red cells today Cardiomyopathy EF 25% by echo with severe TR PA pressure 60 and trivial pericardial effusion Congestive heart failure BNP 1287 Recreational drug use with methamphetamine. Denies cocaine or heroin Prior heavy alcohol use. Father has had 2 heart attacks and stents. His brother is a reformed drug addict. EKG shows sinus rhythm and diffuse ST-T wave changes. Lifetime non-smoker Plan Recheck H&H in a.m. if stable Cardiac cath in a.m. Discussed with patient and his father. Patient voices good understanding and wishes to proceed. CC: Joan Montelongo MD Physical Examination Vital Signs Temp Pulse Resp BP Pulse Ox 97.7 F 93 H 17 131/87 100 10/30/16 13:24 10/30/16 13:24 10/30/16 13:24 10/30/16 13:24 10/30/16 13:24 Result/EKG - Labs CBC & BMP: 10/31/16 03:03 10/31/16 03:03 Labs: Laboratory Results - last 24 hr 10/30/16 10/30/16 10/30/16 14:00 14:00 14:00 WBC 10.4 RBC 3.29 L Hgb 4.7 L* Hct 20.4 L MCV 62.0 L MCH 14 L MCHC 23.0 L RDW 23.7 H Plt Count 481 H MPV 10.2 Neut % (Auto) 79.5 H Lymph % (Auto) 9.5 L [place] % (Auto) 8.9 Eos % (Auto) 1.2 Baso % (Auto) 0.2 Neut # (Auto) 8.3 H Lymph # (Auto) 1.0 L [place] # (Auto) 0.9 H Eos # (Auto) 0.1 Baso # (Auto) 0.0 Immature Gran % 0.7 Nucleated RBC % 1.7 Immature Gran # 0.07 Nucleated RBCs # 0.18 Platelet Estimate Increased Polychromasia 1+ Anisocytosis 1+ Elliptocytes 1+ ESR Westergren Absolute Retic 0.2 Percent Retic 5.1 H Retic Hgb Equivalent 13.0 L INR PT Patient/Control Mix Circ Anticoag PTT Sodium Potassium Chloride Carbon Dioxide Anion Gap BUN Creatinine GFR Calculation BUN/Creatinine Ratio Glucose Calculated Osmolality Calcium Magnesium Iron TIBC % Saturation Ferritin Total Bilirubin Direct Bilirubin AST ALT Alkaline Phosphatase Lactate Dehydrogenase Total Creatine Kinase CK-MB (CK-2) Troponin I B-Natriuretic Peptide Total Protein Albumin Globulin Albumin/Globulin Ratio Vitamin B12 890 Folate 19.1 Free T4 TSH 3rd Generation Urine Color Urine Appearance Urine pH Ur Specific [place] Urine Protein Urine Glucose (UA) Urine Ketones Urine Blood Urine Nitrate Urine Bilirubin Urine Urobilinogen Urine Leukocytes Urine RBC Urine WBC Urine Mucus Ur Culture Indicated? Urine Opiates Screen Ur Barbiturates Screen Ur Phencyclidine Scrn U Amphetamine/Methamph U Benzodiazepines Scrn U Cocaine Metab Screen U Cannabinoids Screen MICHELINE Screen Hepatitis A IgM Ab Hep Bs Antigen Hep B Core IgM Ab Hepatitis C Antibody Infectious [place] Assay Blood Type O POSITIVE Antibody Screen Negative LUCERO (IgG-AHG) LUCERO, Polyspecific Crossmatch Blood Bank Comment 10/30/16 10/30/16 10/30/16 14:00 14:00 14:00 WBC RBC Hgb Hct MCV MCH MCHC RDW Plt Count MPV Neut % (Auto) Lymph % (Auto) [place] % (Auto) Eos % (Auto) Baso % (Auto) Neut # (Auto) Lymph # (Auto) [place] # (Auto) Eos # (Auto) Baso # (Auto) Immature Gran % Nucleated RBC % Immature Gran # Nucleated RBCs # Platelet Estimate Polychromasia Anisocytosis Elliptocytes ESR Westergren Absolute Retic Percent Retic Retic Hgb Equivalent INR PT Patient/Control Mix Circ Anticoag PTT Sodium 139 Potassium 4.7 Chloride 108 H Carbon Dioxide 21 Anion Gap 14.7 BUN 29 H Creatinine 1.40 H GFR Calculation 73 BUN/Creatinine Ratio 20.00 Glucose 104 Calculated Osmolality 282.5 Calcium 8.1 L Magnesium Iron 14 L TIBC 296 % Saturation 4.7 L Ferritin 5.0 L Total Bilirubin 2.10 H Direct Bilirubin 1.00 H AST 98 H ALT 116 H Alkaline Phosphatase 134 H Lactate Dehydrogenase 244 Total Creatine Kinase CK-MB (CK-2) Troponin I 0.184 H B-Natriuretic Peptide 1287 H Total Protein 5.6 L Albumin 2.7 L Globulin 2.9 Albumin/Globulin Ratio 0.9 L Vitamin B12 Folate Free T4 1.06 TSH 3rd Generation 1.580 Urine Color Urine Appearance Urine pH Ur Specific [place] Urine Protein Urine Glucose (UA) Urine Ketones Urine Blood Urine Nitrate Urine Bilirubin Urine Urobilinogen Urine Leukocytes Urine RBC Urine WBC Urine Mucus Ur Culture Indicated? Urine Opiates Screen Ur Barbiturates Screen Ur Phencyclidine Scrn U Amphetamine/Methamph U Benzodiazepines Scrn U Cocaine Metab Screen U Cannabinoids Screen MICHELINE Screen Hepatitis A IgM Ab Hep Bs Antigen Hep B Core IgM Ab Hepatitis C Antibody Infectious [place] Assay Blood Type Antibody Screen LUCERO (IgG-AHG) LUCERO, Polyspecific Crossmatch Blood Bank Comment 10/30/16 10/30/16 10/30/16 14:00 14:00 14:00 WBC RBC Hgb Hct MCV MCH MCHC RDW Plt Count MPV Neut % (Auto) Lymph % (Auto) [place] % (Auto) Eos % (Auto) Baso % (Auto) Neut # (Auto) Lymph # (Auto) [place] # (Auto) Eos # (Auto) Baso # (Auto) Immature Gran % Nucleated RBC % Immature Gran # Nucleated RBCs # Platelet Estimate Polychromasia Anisocytosis Elliptocytes ESR Westergren Absolute Retic Percent Retic Retic Hgb Equivalent INR PT Patient/Control Mix Circ Anticoag PTT Sodium Potassium Chloride Carbon Dioxide Anion Gap BUN Creatinine GFR Calculation BUN/Creatinine Ratio Glucose Calculated Osmolality Calcium Magnesium Iron TIBC % Saturation Ferritin Total Bilirubin Direct Bilirubin AST ALT Alkaline Phosphatase Lactate Dehydrogenase Total Creatine Kinase CK-MB (CK-2) Troponin I B-Natriuretic Peptide Total Protein Albumin Globulin Albumin/Globulin Ratio Vitamin B12 Folate Free T4 TSH 3rd Generation Urine Color Urine Appearance Urine pH Ur Specific [place] Urine Protein Urine Glucose (UA) Urine Ketones Urine Blood Urine Nitrate Urine Bilirubin Urine Urobilinogen Urine Leukocytes Urine RBC Urine WBC Urine Mucus Ur Culture Indicated? Urine Opiates Screen Ur Barbiturates Screen Ur Phencyclidine Scrn U Amphetamine/Methamph U Benzodiazepines Scrn U Cocaine Metab Screen U Cannabinoids Screen MICHELINE Screen Negative (<1:160) Hepatitis A IgM Ab Negative Hep Bs Antigen Negative Hep B Core IgM Ab Negative Hepatitis C Antibody Negative Infectious [place] Assay Blood Type Antibody Screen LUCERO (IgG-AHG) Negative LUCERO, Polyspecific Negative Crossmatch Blood Bank Comment 10/30/16 10/30/16 10/30/16 14:20 14:20 Unknown WBC RBC Hgb Hct MCV MCH MCHC RDW Plt Count MPV Neut % (Auto) Lymph % (Auto) [place] % (Auto) Eos % (Auto) Baso % (Auto) Neut # (Auto) Lymph # (Auto) [place] # (Auto) Eos # (Auto) Baso # (Auto) Immature Gran % Nucleated RBC % Immature Gran # Nucleated RBCs # Platelet Estimate Polychromasia Anisocytosis Elliptocytes ESR Westergren 6 Absolute Retic Percent Retic Retic Hgb Equivalent INR PT Patient/Control Mix Circ Anticoag PTT Sodium Potassium Chloride Carbon Dioxide Anion Gap BUN Creatinine GFR Calculation BUN/Creatinine Ratio Glucose Calculated Osmolality Calcium Magnesium Iron TIBC % Saturation Ferritin Total Bilirubin Direct Bilirubin AST ALT Alkaline Phosphatase Lactate Dehydrogenase Total Creatine Kinase CK-MB (CK-2) Troponin I B-Natriuretic Peptide Total Protein Albumin Globulin Albumin/Globulin Ratio Vitamin B12 Folate Free T4 TSH 3rd Generation Urine Color Yellow Urine Appearance Clear Urine pH 5.0 Ur Specific [place] 1.012 Urine Protein Negative Urine Glucose (UA) Negative Urine Ketones Negative Urine Blood Negative Urine Nitrate Negative Urine Bilirubin Negative Urine Urobilinogen 2.0 H Urine Leukocytes Negative Urine RBC <1 Urine WBC <1 Urine Mucus Occasional Ur Culture Indicated? Not indicated Urine Opiates Screen Negative Ur Barbiturates Screen Negative Ur Phencyclidine Scrn Negative U Amphetamine/Methamph Positive H U Benzodiazepines Scrn Negative U Cocaine Metab Screen Negative U Cannabinoids Screen Negative MICHELINE Screen Hepatitis A IgM Ab Hep Bs Antigen Hep B Core IgM Ab Hepatitis C Antibody Infectious [place] Assay Blood Type Antibody Screen LUCERO (IgG-AHG) LUCERO, Polyspecific Crossmatch Blood Bank Comment 10/30/16 10/31/16 10/31/16 Unknown 03:02 03:03 WBC 10.4 RBC 4.46 D Hgb 7.9 L D Hct 29.0 L MCV 65.0 L MCH 18 L MCHC 27.2 L RDW 27.5 H Plt Count 441 H MPV 9.6 Neut % (Auto) 77.3 H Lymph % (Auto) 10.1 L [place] % (Auto) 8.1 Eos % (Auto) 3.1 Baso % (Auto) 0.6 Neut # (Auto) 8.0 H Lymph # (Auto) 1.1 L [place] # (Auto) 0.8 Eos # (Auto) 0.3 Baso # (Auto) 0.1 Immature Gran % 0.8 Nucleated RBC % 1.2 Immature Gran # 0.08 Nucleated RBCs # 0.12 Platelet Estimate Polychromasia Anisocytosis Elliptocytes ESR Westergren Absolute Retic Percent Retic Retic Hgb Equivalent INR PT Patient/Control Mix Circ Anticoag PTT Sodium Potassium Chloride Carbon Dioxide Anion Gap BUN Creatinine GFR Calculation BUN/Creatinine Ratio Glucose Calculated Osmolality Calcium Magnesium Iron TIBC % Saturation Ferritin Total Bilirubin Direct Bilirubin AST ALT Alkaline Phosphatase Lactate Dehydrogenase Total Creatine Kinase CK-MB (CK-2) Troponin I B-Natriuretic Peptide Total Protein Albumin Globulin Albumin/Globulin Ratio Vitamin B12 Folate Free T4 TSH 3rd Generation Urine Color Urine Appearance Urine pH Ur Specific [place] Urine Protein Urine Glucose (UA) Urine Ketones Urine Blood Urine Nitrate Urine Bilirubin Urine Urobilinogen Urine Leukocytes Urine RBC Urine WBC Urine Mucus Ur Culture Indicated? Urine Opiates Screen Ur Barbiturates Screen Ur Phencyclidine Scrn U Amphetamine/Methamph U Benzodiazepines Scrn U Cocaine Metab Screen U Cannabinoids Screen MICHELINE Screen Hepatitis A IgM Ab Hep Bs Antigen Hep B Core IgM Ab Hepatitis C Antibody Infectious [place] Assay Blood Type O POSITIVE Cancelled Antibody Screen Cancelled Cancelled LUCERO (IgG-AHG) LUCERO, Polyspecific Crossmatch See Detail See Detail Blood Bank Comment Cancelled Cancelled 10/31/16 10/31/16 10/31/16 03:03 07:42 12:27 WBC RBC Hgb Hct MCV MCH MCHC RDW Plt Count MPV Neut % (Auto) Lymph % (Auto) [place] % (Auto) Eos % (Auto) Baso % (Auto) Neut # (Auto) Lymph # (Auto) [place] # (Auto) Eos # (Auto) Baso # (Auto) Immature Gran % Nucleated RBC % Immature Gran # Nucleated RBCs # Platelet Estimate Polychromasia Anisocytosis Elliptocytes ESR Westergren Absolute Retic Percent Retic Retic Hgb Equivalent INR 1.3 PT Patient/Control Mix 14.5 Circ Anticoag PTT 32.2 Sodium 138 Potassium 4.0 Chloride 105 Carbon Dioxide 22 Anion Gap 15.0 BUN 24 H Creatinine 1.30 GFR Calculation 79 BUN/Creatinine Ratio 18.00 Glucose 91 Calculated Osmolality 278.7 Calcium 8.6 Magnesium 2.0 Iron TIBC % Saturation Ferritin Total Bilirubin 3.20 H Direct Bilirubin AST 77 H ALT 112 H Alkaline Phosphatase 130 H Lactate Dehydrogenase Total Creatine Kinase 42 CK-MB (CK-2) 2.4 Troponin I 0.195 H B-Natriuretic Peptide Total Protein 5.8 L Albumin 2.6 L Globulin 3.2 Albumin/Globulin Ratio 0.8 L Vitamin B12 Folate Free T4 TSH 3rd Generation Urine Color Urine Appearance Urine pH Ur Specific [place] Urine Protein Urine Glucose (UA) Urine Ketones Urine Blood Urine Nitrate Urine Bilirubin Urine Urobilinogen Urine Leukocytes Urine RBC Urine WBC Urine Mucus Ur Culture Indicated? Urine Opiates Screen Ur Barbiturates Screen Ur Phencyclidine Scrn U Amphetamine/Methamph U Benzodiazepines Scrn U Cocaine Metab Screen U Cannabinoids Screen MICHELINE Screen Hepatitis A IgM Ab Hep Bs Antigen Hep B Core IgM Ab Hepatitis C Antibody Infectious [place] Assay Blood Type Antibody Screen LUCERO (IgG-AHG) LUCERO, Polyspecific Crossmatch Blood Bank Comment 10/31/16 12:35 WBC RBC Hgb Hct MCV MCH MCHC RDW Plt Count MPV Neut % (Auto) Lymph % (Auto) [place] % (Auto) Eos % (Auto) Baso % (Auto) Neut # (Auto) Lymph # (Auto) [place] # (Auto) Eos # (Auto) Baso # (Auto) Immature Gran % Nucleated RBC % Immature Gran # Nucleated RBCs # Platelet Estimate Polychromasia Anisocytosis Elliptocytes ESR Westergren Absolute Retic Percent Retic Retic Hgb Equivalent INR PT Patient/Control Mix Circ Anticoag PTT Sodium Potassium Chloride Carbon Dioxide Anion Gap BUN Creatinine GFR Calculation BUN/Creatinine Ratio Glucose Calculated Osmolality Calcium Magnesium Iron TIBC % Saturation Ferritin Total Bilirubin Direct Bilirubin AST ALT Alkaline Phosphatase Lactate Dehydrogenase Total Creatine Kinase CK-MB (CK-2) Troponin I B-Natriuretic Peptide Total Protein Albumin Globulin Albumin/Globulin Ratio Vitamin B12 Folate Free T4 TSH 3rd Generation Urine Color Urine Appearance Urine pH Ur Specific [place] Urine Protein Urine Glucose (UA) Urine Ketones Urine Blood Urine Nitrate Urine Bilirubin Urine Urobilinogen Urine Leukocytes Urine RBC Urine WBC Urine Mucus Ur Culture Indicated? Urine Opiates Screen Ur Barbiturates Screen Ur Phencyclidine Scrn U Amphetamine/Methamph U Benzodiazepines Scrn U Cocaine Metab Screen U Cannabinoids Screen MICHELINE Screen Hepatitis A IgM Ab Hep Bs Antigen Hep B Core IgM Ab Hepatitis C Antibody Infectious [place] Assay Negative Blood Type Antibody Screen LUCERO (IgG-AHG) LUCERO, Polyspecific Crossmatch Blood Bank Comment
--- NOTE | 2016-10-31 12:48 | Hospitalist Progress Note ---
Assessment and Plan (1) Anemia Status: Acute Assessment and plan: 1)profound iron deficiency anemia without sign of GIB or other blood loss- GI to see. transfused 2 units yesterday adn I will give 2 more units. heme to see also- his picture also includes splenomegaly, lymphadenopathy, new cardiomyopathy. 2)liver disease- bili up today, transaminases about the same. INR ok albumin low. some ascites on CT scan. MICHELINE neg, ESR 6. hepatitis serology negative. HIV neagtive. mono pending. GI to see 3)cardiomyopathy- new diagnosis. no volume overload. cardiology to see today. Etiology is not clear and though it may be due to substance abuse, he will likely need left heart cath to r/o CAD given his family history at some point. DEREK and coreg started this morning by cards. No antiplatelel or anticoagulation therapy pendign GI eval for anemia 4)meth abuse- counselled cessation. also uses alcohol but not daily or in sig amounts he reports. Current Visit: Yes (2) Jaundice Status: Acute Current Visit: Yes (3) Cardiomyopathy Status: Acute Current Visit: Yes (4) Lymphadenopathy Status: Acute Current Visit: Yes (5) Methamphetamine abuse Status: Chronic Current Visit: Yes (6) Elevated LFTs Status: Acute Current Visit: Yes Hospitalist: Subjective Interval history: Mr Marino reports feeling better this morning after transfusions yesterday. He denies pain and is hungry. His shortness of breath has resolved at least at rest as he has been since admission. Exam - Constitutional Vitals: Period Temp Pulse Resp BP Sys/Noel Pulse Ox Last 24 Hr 97.4 F-98.7 F 90-117 17-31 96-149/61-93 97-100 General appearance: normal weight, no acute distress - Head Head exam: Present: normocephalic, atraumatic - Eye Eye exam: Present: EOMI. Absent: periorbital swelling, scleral icterus Pupils: Present: THERESE - Respiratory Respiratory exam: Present: clear to auscultation bilaterally - Cardiovascular Cardiovascular exam: Present: regular rate and rhythm - GI/Abdominal GI/Abdominal exam: Present: normal bowel sounds, soft. Absent: tenderness - Extremities Exam Extremities exam: Absent: edema - Neurological Exam Neurological exam: Present: alert, oriented X3, CN II-XII intact, other (no asterixis or confusion). Absent: motor sensory deficit - Psychiatric Psychiatric exam: Present: normal affect, normal mood - Skin Skin exam: Present: warm, dry. Absent: normal color (jaundice), rash Results - Labs CBC & BMP: 10/31/16 03:03 10/31/16 03:03 Lab Results: I have reviewed the past 24 hour labs Quality Measures - VTE Contraindication to Pharmacological VTE Prophylaxis: Active Bleeding
--- NOTE | 2016-10-31 12:56 | General Surgery Consult Note ---
Assessment and Plan - Time spent with patient Time spent with patient: Greater than 30 minutes (1) Splenomegaly Status: Acute Assessment and plan: 50-year-old white male with history of gout and methamphetamine abuse admitted by the hospitalist service on 10/30/2016 with shortness of breath. Patient's found to be in congestive heart failure with an EF of 25%, severely anemic and has received 3 units of blood so far. CT scan at [facility] showed some splenomegaly and inguinal enlarged lymph nodes. Upon exam I could not appreciate enlarged spleen nor any enlarged lymph nodes throughout the body. Dr. Hardy we will see and examined patient and further recommendations to follow. Hospitalist is requesting lymph node biopsy if he thinks it is needed. Current Visit: Yes (2) Lymphadenopathy Status: Acute Current Visit: Yes History of Present Illness Chief complaint: Shortness of breath History of present illness: Mr. Marino is a 50 year old white male with history of gout and methamphetamine abuse admitted by the hospitalist on 10/30/2016 as a transfer from [facility] for evaluation of shortness of breath. Patient had CT scan of the abdomen pelvis there that showed small pleural or cardial effusion, right pleural effusion, splenomegaly, mesenteric, periaortic, and inguinal lymphadenopathy, ascites, and anasarca. He is very anemic with an iron deficiency anemia with blood counts at 4/20. He denies any history of bleeding. He has been using NSAIDs for approximately 1 month for his gout. Patient has received 3 units of PRBCs and his H&H this morning is 7.9/29. GI has been consulted and awaiting for surgical clearance to scope. Patient also was found to be in congestive heart failure with an EF of 25%. Cardiology has been consulted. Upon exam patient is jaundiced with a bilirubin of 3.2 and mildly elevated transaminases. CT scan shows a tract and gallbladder with fluid in the gallbladder wall and a normal common bile duct. Ultrasound of the abdomen also shows a contracted gallbladder but no obvious stones. There is a thickened wall with minimal pericholecystic fluid. Patient is nontender in the right upper quadrant and denies nausea vomiting or pain recently or after eating meals. He states he is feeling much better than he did yesterday. He is still having some minimal shortness of breath but denies headache, chest pain , lower extremity edema. Dr. Hardy has been consulted to evaluate the inguinal lymphadenopathy and splenomegaly. Patient's mono test is pending. Home Medications Medication Instructions Recorded Confirmed Type No Known Home Medications [No 10/30/16 10/30/16 History Known Home Medications] Allergies Allergy/AdvReac Type Severity Reaction Status Date / Time No Known Allergies Allergy Verified 10/30/16 16:23 Medical,Surgical,& Family Hx - Medical History Rheumatology: History of;: Gout (hasn't taken his med in a month) Hematology: History of: Anemia - Surgical History Abdominal Surgeries: Patient denies: Abdominal Surgery - Family History Family History: Reports;: Family Diabetes - Social History Smoking Status: Never smoker Frequency of Alcohol Use: None Type of Drug Use: Methamphetamine Marital Status: Single Lives With:: Alone Functional capacity: independent ambulation Review of systems: Complete 10 system review of systems was obtained and pertinent positives and negatives per HPI Exam - Constitutional Vitals: Period Temp Pulse Resp BP Sys/Noel Pulse Ox Last 24 Hr 97.4 F-98.7 F 90-117 17-31 96-149/61-93 97-100 Exam: Constitutional System: No distress. No tremulousness. Head: Normocephalic, atraumatic. Ears, Nose and Throat System: No evidence of Otitis or Mastoiditis. No epistaxis or discharge, poor dentition Eyes System: Pupils equal, round, and reactive. Extraocular muscles intact. Sclera icteric Neck: Supple, without adenopathy, No jugular venous distention. No thyromegaly, neck mass, or prior surgery apparent. Respiratory System: Chest clear to auscultation. Cardiovascular System: Heart with regular rate and rhythm. No murmur. GI System: Abdomen soft, nontender. Normo active bowel sounds present. Musculoskeletal System: limbs with no pedal edema. Full distal pulses. No appreciable lymphadenopathy felt throughout Neurological System: No discernable sensory deficit. No aphasia Psychiatric System: Conversation is rational Quality Measures - VTE Contraindication to Pharmacological VTE Prophylaxis: Active Bleeding Results - Labs CBC & BMP: 10/31/16 03:03 10/31/16 03:03 Lab Results: I have reviewed the past 24 hour labs - Diagnostic Findings Procedure: Chest x-ray: report reviewed by me (Moderate cardiomegaly with heart having a globular configuration which can be seen with cardiomyopathy or pericardial effusion. Mild CHF), CT Abdomen and Pelvis: report reviewed by me ( Splenomegaly, mesenteric, periaortic and inguinal lymphadenopathy which may be secondary to lymphoma, leukemia, extra medullary hematopoiesis, ascites and anasarca, nonobstructing bilateral nephrolithiasis, anemia, cardiomegaly, right pleural effusion, hiatal hernia, esophagitis, pancreatic atrophy), Ultrasound: report reviewed by me (Contracted gallbladder with no obvious stones. The gallbladder appears thickened with minimal pericholecystic fluid. Elongation of the right lobe of the liver with minimal splenomegaly. Minimal ascites.)
[2016-10-31 13:13] LABS: Troponin I Only 0.195 NG/ML (0.00-0.045)
[2016-10-31] MEDS: LISINOPRIL 2.5 MG TABLET PO SCH (13:18)
[2016-10-31] MEDS ORDERED: FUROSEMIDE 40 MG/4 ML VIAL ONE (16:16)
[2016-10-31] MEDS: PANTOPRAZOLE 40 MG VIAL IV SCH (16:29)
[2016-10-31 17:08] LABS: Troponin I Only 0.196 NG/ML (0.00-0.045)
--- NOTE | 2016-10-31 18:46 | Event Note ---
This is an addendum to gastroenterology consult note dated today. The [employer] HR would not allow me to edit the note dictated earlier by Charu JACOB. Patient seen and examined. Agree with findings of her note. 50-year-old male is admitted with symptomatic anemia with increased weakness and shortness of breath. He was found to have hemoglobin 4.5. Patient denies gross GI bleeding but appears to be iron deficient. He also was noted to have splenomegaly on abdominal imaging and abnormal liver tests. Suspect he also has chronic liver disease/portal hypertension. Note that viral hepatitis panel was negative as well as anti-nuclear antibody. Patient feels much better after transfusion RBCs today. Discussed with him and plan, if stable, to do EGD tomorrow to evaluate for possible varices and other sources of GI bleeding.
[2016-10-31] MEDS: CARVEDILOL 3.125 MG TABLET PO SCH (21:44)
[2016-10-31 21:45] LABS: Hematocrit 33.3 VOL% (42.0-52.0)
[2016-10-31 21:49] LABS: Hemoglobin 9.4 GM/DL (14.0-18.0)
[2016-11-01 00:08] LABS: Troponin I Only 0.188 NG/ML (0.00-0.045)
[2016-11-01 05:55] LABS: Basophils # 0.1 10*3/uL (0.0-0.2); Basophils % 0.6 % (0.0-0.8); Eosinophils # 0.4 10*3/uL (0.0-0.87); Eosinophils % 4.1 % (0.00-10.9); Hematocrit 33.1 VOL% (42.0-52.0); Lymphocytes # 1.3 10*3/uL (1.4-4.0); Lymphocytes % 12.8 % (21.2-54.2); Mean Corpuscular HGB Conc 28.1 GM/DL (32-36); Mean Corpuscular Hemoglobin 19 PG (27-34); Mean Corpuscular Volume 68.2 FL (87-102); Mean Platelet Volume 9.6 FL (9.6-12.0); Monocytes # 0.9 10*3/uL (0.11-0.8); Monocytes % 8.7 % (1.7-12.7); NRBC # 0.11 10*3/uL; Neutrophils # 7.3 10*3/uL (1.4-7.4); Neutrophils % 72.8 % (38.7-73.9); Platelet Count 409 T/CUMM (130-400); Red Blood Count 4.85 MC/CUMM (3.8-5.5); Red Cell Distribution Width 28.5 % (9.3-17.3)
[2016-11-01 06:04] LABS: INR 1.2; PT Patient Result 13.2 SECS; Partial Thromboplastin Time 29.3 SECS (0-40)
[2016-11-01 06:12] LABS: Hemoglobin 9.3 GM/DL (14.0-18.0)
[2016-11-01 06:24] LABS: Hypochromasia 1+; Microcytosis 2+
[2016-11-01 06:25] LABS: Acanthocytes Few; Elliptocytes 1+; Polychromasia Slight; Tear Drop Cells Slight
[2016-11-01 06:26] LABS: Anisocytosis 1+; Platelet Estimate Increased; Poikilocytosis 1+
[2016-11-01 06:29] LABS: Albumin 2.3 G/DL (3.4-5.0); Bilirubin,Total 2.5 MG/DL (0.2-1.0); Calcium 8.3 MG/DL (8.5-10.1); Potassium 3.8 MMOL/L (3.5-5.1); Total Protein 5.1 G/DL (6.4-8.3)
--- NOTE | 2016-11-01 07:43 | Hematology Consult ---
Assessment and Plan (1) Iron deficiency anemia Status: Acute Assessment and plan: This patient has obvious cirrhosis. His iron deficiency anemia is most likely secondary to poor nutrition or internal GI blood losses that is common for cirrhotic patients with portal hypertension. He also has splenomegaly which is seen with portal hypertension from cirrhosis. We will see the extent of his lymphadenopathy on today's CT scans but on exam it is definitely unremarkable. I think there is very little for hematology to offer in his situation. The only recommendation I have at this point is to place him on iron supplementation and to consider excisional lymph node biopsy if today CT scan confirms diffuse abnormal lymphadenopathy. I will follow-up on his case again tomorrow to review the CT scan. Current Visit: Yes (2) Cirrhosis Status: Acute Current Visit: Yes (3) Cardiomyopathy Status: Acute Current Visit: Yes (4) Lymphadenopathy Status: Acute Current Visit: Yes History of Present Illness - Consult Narrative History of present illness: 50 year old white male with history of gout and methamphetamine abuse admitted by the hospitalist on 10/30/2016 as a transfer from [facility] for evaluation of shortness of breath, anemia, and questionable LAD. At [facility], patient had CT scan of the abdomen pelvis that showed right pleural effusion, splenomegaly, mesenteric, periaortic, and inguinal lymphadenopathy, ascites, and anasarca. He was severely anemic with iron deficiency anemia with Hb of 4. He denies any history of bleeding. He has been using NSAIDs for approximately 1 month for his gout. Patient also was found to be in congestive heart failure with an EF of 25%. Ultrasound of the abdomen also shows an enlarged liver and ascites. He is jaundiced on exam. He has a history of heavy alcohol use but reportedly quit a few years ago. He receives 4 units of packed red cells since being admitted. His hemoglobin has responded well. GI seeing him for likely upper endoscopy to evaluate for the source of his iron deficiency anemia. General surgery has seen him for possible biopsy of 1 of his lymphadenopathy sites. A CT scan is pending today to reevaluate the above-mentioned CT findings at the outside hospital that were seen on a noncontrasted scan. CC: Joan Montelongo MD - Home Medications and Allergies Home Medications: Home Medications Medication Instructions Recorded Confirmed Type No Known Home Medications [No 10/30/16 10/30/16 History Known Home Medications] Allergies/Adverse Reactions: Allergies Allergy/AdvReac Type Severity Reaction Status Date / Time No Known Allergies Allergy Verified 10/30/16 16:23 Medical,Surgical,& Family Hx - Medical History Rheumatology: History of;: Gout (hasn't taken his med in a month) Hematology: History of: Anemia - Surgical History Abdominal Surgeries: Patient denies: Abdominal Surgery - Family History Family History: Reports;: Family Diabetes - Social History Smoking Status: Never smoker Frequency of Alcohol Use: None Type of Drug Use: Methamphetamine 12 point system: reviewed and no additional remarkable complaints except as stated - Constitutional Constitutional: Present: fatigue - Cardiovascular Cardiovascular ROS IM: Present: chest pain, edema - Respiratory Respiratory: Present: dyspnea Exam - Constitutional Vitals: Period Temp Pulse Resp BP Sys/Noel Pulse Ox Last 24 Hr 96.1 F-98.9 F 90-105 18-22 113-137/55-84 92-100 General appearance: normal weight, no acute distress - Head Head Exam: Present: normocephalic, atraumatic - Eye Eye Exam: Present: EOMI Pupils: Present: PERRL - ENT ENT exam: Present: normal exam, normal oropharynx - Neck Neck exam: Absent: lymphadenopathy, thyromegaly - Respiratory Respiratory exam: Present: CTAB. Absent: wheezes - Cardiovascular Cardiovascular exam: Present: RRR. Absent: JVD, systolic murmur - GI/Abdominal GI/Abdominal exam: Present: soft. Absent: distended, firm, mass - Neurological Exam Neurological exam: Present: alert, oriented X3 - Psychiatric Psychiatric exam: Present: normal affect, normal mood - Skin Skin exam: Present: warm, dry Results - Labs CBC & BMP: 11/01/16 05:33 11/01/16 05:33 Lab Results: I have reviewed the past 24 hour labs - Diagnostic Findings Procedure: CT Abdomen and Pelvis: report reviewed by me, Ultrasound: report reviewed by me Quality Measures - VTE Contraindication to Pharmacological VTE Prophylaxis: Active Bleeding
[2016-11-01] MEDS: PANTOPRAZOLE 40 MG VIAL IV SCH (08:45)
[2016-11-01] MEDS: CARVEDILOL 3.125 MG TABLET PO SCH ×2 (08:45→21:35)
[2016-11-01] MEDS: LISINOPRIL 2.5 MG TABLET PO SCH (08:45)
--- NOTE | 2016-11-01 09:30 | CT Report ---
Exam: CT abdomen pelvis w con Date: 11/01/2016 4:00 AM Comparison: None Indication: Lymphadenopathy Total DLP: 909 mGy*cm Technical: Oral contrast was administered. Images were obtained from the lung bases to the iliac crest continuation through the pelvis with 100 cc of Omnipaque 350 with axial sagittal coronal imaging available for review. Dose reduction was performed with decreasing kv and mA and automated exposure Findings: Lung bases: No obvious consolidations present. Low volume right effusion present. Minimal left pleural effusion noted. Minimal right basilar atelectasis Liver and Spleen: The liver and spleen are demonstrated with a splenomegaly noted. No focal mass clearly seen. The hepatic and portal veins are otherwise unremarkable Gallbladder and Pancreas: Slightly thickened gallbladder wall. The pancreas is otherwise intact. No intra or extrahepatic ductal dilatation present. Adrenals: Unremarkable Kidneys: Both kidneys are equally perfused and demonstrate no evidence for obstructive uropathy. Stomach: Incompletely distended with air fluid and contrast and debris Retroperitoneum: No enlarged lymph nodes. Aorta and IVC: Atherosclerotic vascular plaque within the aorta. No obvious aneurysm IVC is patent. Bowel and Mesentery: No obvious bowel obstruction. Moderate stool and debris within the colon. Minimal diverticulosis without diverticulitis present. Pelvis: Bladder: Thickening of the bladder wall present. Fluid: Moderate free fluid Lymph nodes: No enlarged lymph nodes. Pelvic organs: Unremarkable Osseous structures: No suspicious appearing osseous abnormalities noted. Impression: 1. Splenomegaly is present. 2. Diverticulosis without diverticulitis. 3. Small tiny pleural effusions right greater than left. 4. Slight decrease in cardiac size compared to the previous examination with no pericardial effusion noted. 5. Cardiomegaly however decreased in size compared to previous study PROCEDURE INTERPRETED AT [facility] DEPARTMENT OF RADIOLOGY Final Report Signed by: Dr. Milton Menodza
--- NOTE | 2016-11-01 11:20 | Cardiology Progress Note ---
Cardiology - PN: Subj Interval history: Cardiology note Telemetry benign. No shortness of breath. H&H 9.3 and 30.3 after 5 unit transfusion. Blood pressure 126/80 Regular rhythm no gallop Decreased breath sounds but clear Abdomen soft benign Sodium 143 potassium 3.8 chloride 107 CO2 26 BUN 21 creatinine 1.40 Hemoglobin 9.3 hematocrit 33.1 Cardiomyopathy Cirrhosis Severe anemia. Status post 5 units transfusion Prior history of alcohol abuse Periaortic lymphadenopathy Plan EGD today Coreg 3.125 mg twice daily Lisinopril 2.5 mg daily Lasix 40 mg IV daily Lexiscan cardiac stress test in a.m. Exam (Progress Note) - Constitutional Vitals: Period Temp Pulse Resp BP Sys/Noel Pulse Ox Last 24 Hr 96.1 F-98.9 F 97-105 18-22 113-137/55-91 92-100 Result/EKG - Labs CBC & BMP: 11/01/16 05:33 11/01/16 05:33 Labs: Laboratory Results - last 24 hr 10/31/16 10/31/16 10/31/16 03:02 12:27 12:35 WBC RBC Hgb Hct MCV MCH MCHC RDW Plt Count MPV Neut % (Auto) Lymph % (Auto) [place] % (Auto) Eos % (Auto) Baso % (Auto) Neut # (Auto) Lymph # (Auto) [place] # (Auto) Eos # (Auto) Baso # (Auto) Immature Gran % Nucleated RBC % Immature Gran # Nucleated RBCs # Platelet Estimate Polychromasia Hypochromasia Poikilocytosis Anisocytosis Microcytosis Tear Drop Cells Elliptocytes Acanthocytes (Spur) INR PT Patient/Control Mix Circ Anticoag PTT Sodium Potassium Chloride Carbon Dioxide Anion Gap BUN Creatinine GFR Calculation BUN/Creatinine Ratio Glucose Calculated Osmolality Calcium Total Bilirubin AST ALT Alkaline Phosphatase Total Creatine Kinase 42 CK-MB (CK-2) 2.4 Troponin I 0.195 H Total Protein Albumin Globulin Albumin/Globulin Ratio Infectious [place] Assay Negative Blood Type Cancelled Antibody Screen Cancelled Crossmatch See Detail Blood Bank Comment Cancelled 10/31/16 10/31/16 10/31/16 16:13 21:28 23:16 WBC RBC Hgb 9.4 L Hct 33.3 L MCV MCH MCHC RDW Plt Count MPV Neut % (Auto) Lymph % (Auto) [place] % (Auto) Eos % (Auto) Baso % (Auto) Neut # (Auto) Lymph # (Auto) [place] # (Auto) Eos # (Auto) Baso # (Auto) Immature Gran % Nucleated RBC % Immature Gran # Nucleated RBCs # Platelet Estimate Polychromasia Hypochromasia Poikilocytosis Anisocytosis Microcytosis Tear Drop Cells Elliptocytes Acanthocytes (Spur) INR PT Patient/Control Mix Circ Anticoag PTT Sodium Potassium Chloride Carbon Dioxide Anion Gap BUN Creatinine GFR Calculation BUN/Creatinine Ratio Glucose Calculated Osmolality Calcium Total Bilirubin AST ALT Alkaline Phosphatase Total Creatine Kinase 43 41 CK-MB (CK-2) 2.5 2.2 Troponin I 0.196 H 0.188 H Total Protein Albumin Globulin Albumin/Globulin Ratio Infectious [place] Assay Blood Type Antibody Screen Crossmatch Blood Bank Comment 11/01/16 11/01/16 11/01/16 05:33 05:33 05:33 WBC 10.0 RBC 4.85 Hgb 9.3 L Hct 33.1 L MCV 68.2 L MCH 19 L MCHC 28.1 L RDW 28.5 H Plt Count 409 H MPV 9.6 Neut % (Auto) 72.8 Lymph % (Auto) 12.8 L [place] % (Auto) 8.7 Eos % (Auto) 4.1 Baso % (Auto) 0.6 Neut # (Auto) 7.3 Lymph # (Auto) 1.3 L [place] # (Auto) 0.9 H Eos # (Auto) 0.4 Baso # (Auto) 0.1 Immature Gran % 1.0 Nucleated RBC % 1.1 Immature Gran # 0.10 Nucleated RBCs # 0.11 Platelet Estimate Increased Polychromasia Slight Hypochromasia 1+ Poikilocytosis 1+ Anisocytosis 1+ Microcytosis 2+ Tear Drop Cells Slight Elliptocytes 1+ Acanthocytes (Spur) Few INR 1.2 PT Patient/Control Mix 13.2 Circ Anticoag PTT 29.3 Sodium 143 Potassium 3.8 Chloride 107 Carbon Dioxide 26 Anion Gap 13.8 BUN 21 H Creatinine 1.40 H GFR Calculation 70 BUN/Creatinine Ratio 15.00 Glucose 109 H Calculated Osmolality 288.0 Calcium 8.3 L Total Bilirubin 2.50 H AST 39 H ALT 88 H Alkaline Phosphatase 119 H Total Creatine Kinase CK-MB (CK-2) Troponin I Total Protein 5.1 L Albumin 2.3 L Globulin 2.8 Albumin/Globulin Ratio 0.8 L Infectious [place] Assay Blood Type Antibody Screen Crossmatch Blood Bank Comment Quality Measures - VTE Contraindication to Pharmacological VTE Prophylaxis: Active Bleeding
--- NOTE | 2016-11-01 11:27 | General Surgery Progress Note ---
Assessment and Plan (1) Lymphadenopathy Status: Acute Assessment and plan: Plan: No significant lymphadenopathy on CT scan or physical examination. He is a poor candidate for surgical procedures and I doubt that examination of any lymph nodes would not yield anything of value. I will sign off. Please call if needed. Current Visit: Yes Subjective Patient reports: Present: no new complaints Exam - Constitutional Vitals: Period Temp Pulse Resp BP Sys/Noel Pulse Ox Last 24 Hr 96.1 F-98.9 F 97-105 18-22 113-137/55-91 92-100 General appearance: no acute distress - Respiratory Respiratory exam: Present: clear to auscultation bilaterally - Cardiovascular Cardiovascular exam: Present: RRR - Neurological Exam Neurological exam: Present: alert Speech: Present: normal - Skin Skin exam: Present: normal color Results - Labs CBC & BMP: 11/01/16 05:33 11/01/16 05:33 Quality Measures - VTE Contraindication to Pharmacological VTE Prophylaxis: Active Bleeding
--- NOTE | 2016-11-01 12:04 | Hospitalist Progress Note ---
Assessment and Plan (1) Anemia Status: Acute Assessment and plan: 1)profound iron deficiency anemia without sign of GIB or other blood loss- he has had 5 U PRBC and his H&H has been stable without sign of blood loss or report of blood loss prior to admission. EGD today. 2)liver disease- bili up today, transaminases about the same. INR ok albumin low. some ascites on CT scan. MICHELINE neg, ESR 6. hepatitis serology negative. HIV neagtive. mono pending. cirrhosis. 3)cardiomyopathy- new diagnosis. no volume overload. Etiology is not clear and though it may be due to substance abuse, buthe has family history of CAD. DEREK and coreg started No antiplatelel or anticoagulation therapy pendign GI eval for anemia. Stress test tomorrow. 4)meth abuse- counselled cessation. also uses alcohol but not daily or in sig amounts he reports. Current Visit: Yes (2) Jaundice Status: Acute Current Visit: Yes (3) Cardiomyopathy Status: Acute Current Visit: Yes (4) Lymphadenopathy Status: Acute Current Visit: Yes (5) Methamphetamine abuse Status: Chronic Current Visit: Yes (6) Elevated LFTs Status: Acute Current Visit: Yes Hospitalist: Subjective Interval history: Mr Marino is feeling ok today. No shortness of breath. PLans are for EGD today and stress test tomorrow. Exam - Constitutional Vitals: Period Temp Pulse Resp BP Sys/Noel Pulse Ox Last 24 Hr 96.1 F-98.9 F 97-105 18-22 113-137/55-91 92-100 General appearance: normal weight, no acute distress, other (jaundiced) - Eye Eye exam: Present: EOMI. Absent: scleral icterus Pupils: Present: THERESE - Respiratory Respiratory exam: Present: clear to auscultation bilaterally - Cardiovascular Cardiovascular exam: Present: regular rate and rhythm. Absent: gallop, systolic murmur - GI/Abdominal GI/Abdominal exam: Present: normal bowel sounds, soft. Absent: tenderness - Extremities Exam Extremities exam: Present: edema (trace in lower extremities) - Neurological Exam Neurological exam: Present: alert, oriented X3 - Skin Skin exam: Present: warm, dry Results - Labs CBC & BMP: 11/01/16 05:33 11/01/16 05:33 Lab Results: I have reviewed the past 24 hour labs Quality Measures - VTE Contraindication to Pharmacological VTE Prophylaxis: Active Bleeding
[2016-11-01] MEDS ORDERED: ETOMIDATE 20 MG/10 ML VIAL IV ONE (13:57)
--- NOTE | 2016-11-01 14:01 | History and Physical Update ---
History and Physical Update - History and Physical H&P was reviewed, the patient examined and there: are no changes in the patients condition since last H&P was completed. - Physical Exam Mental Status: alert and oriented Heart: regular rate and rhythm Lung: clear to auscultation Abdomen: within normal limits Vitals: within normal limits
--- NOTE | 2016-11-01 14:13 | Operative Note ---
Date of procedure: 11/01/16 Pre-op diagnosis: GI bleed, iron deficiency anemia Procedure: Procedure: Esophagogastroduodenoscopy with biopsies Truong's esophagus and distal esophageal ulcer Brief clinical abstract: Patient is a 50-year-old male with multiple medical problems. He is admitted with symptomatic iron deficiency anemia with hemoglobin 4.5 he denies any gross GI bleeding. He does have difficulty swallowing solids at times. Indication for procedure: GI bleed, iron deficiency anemia Endoscopic findings:[After informed consent was obtained, the patient was placed in the left lateral decubitus position. The gastroscope was inserted in the upper esophagus under direct vision with no resistance encountered. Esophageal mucosa appeared normal down to the distal upper esophagus were 4 longitudinal ulcers were noted. These became confluent in the midesophagus. No bleeding stigmata were associated with these. Squamocolumnar junction was located in the midesophagus around 32 cm below incisors. [place] colored mucosa was distal to this consistent with Truong's esophagus. There were a couple of 5-10 mm diameter ulcers in the distal esophagus noted. Multiple biopsies were obtained from these areas as well as in four-quadrant fashion to evaluate for pathologic examination. Patient has a moderate sized hiatal hernia. The endoscope was advanced in the stomach which was carefully examined including retroflexed view of the cardia and fundus with no other normality seen. The pyloric channel, duodenal bulb, second and third portion of the duodenum were normal. The endoscope was withdrawn and patient appeared to tolerate the procedure well. Impression: #1 ulcerative esophagitis secondary to GERD #2 Truong's esophagus #3 distal esophageal ulcer within Truong's mucosa-would be concerned about dysplasia/carcinoma #4 hiatal hernia Recommendations: PPI therapy for now. Patient probably also needs colonoscopy at some point when cardiology feels he can tolerate this. Anesthesia: MAC Surgeon / Physician: Milton Givens Estimated blood loss: minimal Specimens: other (Truong's esophagus/distal esophageal ulcer) Condition: stable Disposition: post procedure unit Results - Labs CBC & BMP: 11/01/16 05:33 11/01/16 05:33 Discharge Plan - Discharge Medications No Action No Known Home Medications [No Known Home Medications] - Follow Up or Referral - Forms/Instructions
--- NOTE | 2016-11-01 14:18 | Anesthesia Post-Op ---
Anesthesia Post OP - Post Ansesthetic Evaluation Patient seen in post op: Yes Resp: within normal limits CV: within normal limits Mental: within normal limits Temp: within normal limits [id number]: within normal limits Nausea and Vomiting: within normal limits Pain: within normal limits
[2016-11-01] MEDS: FUROSEMIDE 40 MG/4 ML VIAL IV SCH (15:19)
--- NOTE | 2016-11-02 09:46 | Event Note ---
Patient underwent Lexiscan cardiolite stress testing due to exercise intolerance and gait instability. Maximum HR 89. Patient had no significant EKG changes noted. Blood pressure responded appropriately. Patient had mild nausea. No chest pain, shortness of breath, dizziness, lightheadedness, or syncope. Patient now to nuclear medicine for final scan. Dr. Grant to read, interpret, and advise.
--- NOTE | 2016-11-02 09:56 | Cardiology Progress Note ---
Assessment and Plan - Time spent with patient Time spent with patient: Less than 30 minutes (1) Cardiomyopathy Status: Acute Assessment and plan: See plan of care listed below. Current Visit: Yes (2) Anemia Status: Acute Assessment and plan: See plan of care listed below. Current Visit: Yes (3) Methamphetamine abuse Status: Chronic Assessment and plan: See plan of care listed below. Current Visit: Yes (4) Elevated LFTs Status: Acute Assessment and plan: See plan of care listed below. Current Visit: Yes (5) Excessive use of nonsteroidal anti-inflammatory drug (NSAID) Status: Chronic Assessment and plan: See plan of care listed below. Current Visit: Yes Cardiology - PN: Subj Interval history: Cycle Analyst: new to Dr. Grant Mr. Marino is a 50-year-old male who was transferred to our facility from [facility] for further evaluation of shortness of breath and anemia. His initial H&H was 4.7 and 20.4. He has a history of gouty arthritis, alcohol abuse, and methamphetamine abuse. He does have a family history of CAD and is a former drinker. CT of the abdomen pelvis showed small pericardial effusion, right pleural effusion, normal liver, splenomegaly, mesenteric, para-aortic, and inguinal lymphadenopathy, ascites, and anasarca. General surgery was consulted for biopsy of inguinal lymphadenopathy. GI was consulted to see him due to anemia. An echocardiogram was obtained 10/30/2016 and revealed ejection fraction 25%, mild LVH, mild biatrial enlargement, moderate mitral regurgitation, severe tricuspid regurgitation, mild pulmonary regurgitation, only hypertension with PAP estimated 59 mmHg and he was also noted to have a trivial pericardial effusion. We are consulted to see him due to cardiomyopathy. ASSESSMENT/PLAN: 1. Cardiomyopathy - New onset, unsure whether ischemic or nonischemic. Suspect this is significantly worsened by his long history of alcohol and meth abuse. EF 25% per echocardiogram. Patient will need further evaluation, but given his severe anemia, I suspect we will need to hold off on the left heart catheterization until his blood counts have stabilized. At this time, dual antiplatelet therapy and anticoagulation would be contraindicated. He has been started on low-dose beta-marilynn and low-dose DEREK inhibitor as well as Lasix IV daily. He underwent Lexiscan cardiac stress test today. We will await these results. 2. Anemia - He underwent EGD on 11/01/2016 which revealed ulcerative esophagitis secondary to GERD, Truong's esophagus, distal esophageal ulcer within Truong' s mucosa (would be concerned about dysplasia, carcinoma), and hiatal hernia. H& H improved to 9.3 and 33.1. 3. Methamphetamine abuse - I had a long discussion with the patient and his family who are present regarding the need for total cessation of all illegal substances. If the patient's heart function does not improve, it is likely he will end up needing an AICD. Given his drug use, most insurance companies will not pay for these to be placed in individuals with patients who have use illegal substances. The patient and his family voiced understanding. We will consult case management to help with initiation of some form of insurance assistance. 4. Elevated LFTs - GI is following. These are slowly trending down. 5. Exessive use of NSAIDS 6. Ulcerative esophagitis - GI recommends continuing PPI therapy for now. He would need colonoscopy at some point in the future. Exam (Progress Note) - Constitutional Vitals: Period Temp Pulse Resp BP Sys/Noel Pulse Ox Last 24 Hr 97.1 F-98.5 F 85-95 15-20 105-133/59-083 95-100 Exam: General appearance: Pleasant and cooperative. Normal weight, no acute distress. Appears chronically ill and disheveled. - Head Head exam: Present: normal inspection, normocephalic, atraumatic. Absent: hematoma, laceration - Eye Eye exam: Present: EOMI. Absent: conjunctival injection, nystagmus, periorbital swelling, scleral icterus, laceration to eyelids Pupils: Present: PERRL. Absent: constricted, dilated, fixed, irregular, unequal - ENT ENT exam: Present: Edentulous of numerous teeth, normal external ear exam - Neck Neck exam: Present: normal inspection. Absent: lymphadenopathy, meningismus, tenderness, thyromegaly - Respiratory Respiratory exam: Present: clear to auscultation bilaterally. Absent: accessory muscle use, chest wall tenderness - Cardiovascular Cardiovascular exam: Present: regular rate and rhythm. Absent: carotid bruit, gallop, JVD, rubs, murmur - GI/Abdominal GI/Abdominal exam: Present: normal bowel sounds, soft. Absent: distended, firm , tenderness, rebound. - Extremities Exam Extremities exam: Present: normal inspection, normal capillary refill. Upper extremity pulses 2+. Lower extremity pulses 2+. Trace pretibial edema. Absent : calf tenderness -Musculoskeletal Exam Musculoskeletal: Present: No Fluid Collection, No Pain, Normal Range of Motion - Back Exam Back exam: Present: normal inspection. Absent: muscle spasm, vertebral tenderness - Neurological Exam Neurological exam: Present: alert, oriented X3, grossly intact without resting or essential tremor - Psychiatric Psychiatric exam: Present: normal affect, normal mood - Skin Skin exam: Present: jaundiced, warm, dry, intact. Absent: cyanosis, diaphoretic , rash, urticaria Result/EKG - Labs CBC & BMP: 11/01/16 05:33 11/01/16 05:33 Lab Results: I have reviewed the past 24 hour labs Labs: Laboratory Results - last 24 hr 10/30/16 14:00 HIV-2 Antibody Conf Negative - EKG EKG results: interpreted by me, sinus rhythm Quality Measures - VTE Contraindication to Pharmacological VTE Prophylaxis: Active Bleeding
--- NOTE | 2016-11-02 10:12 | Hematology Progress Note ---
Assessment and Plan (1) Cirrhosis Status: Acute Current Visit: Yes (2) Cardiomyopathy Status: Acute Current Visit: Yes (3) Lymphadenopathy Status: Acute Current Visit: Yes Hematology Subjective PN Interval history: Mr. Marino's follow-up CT scan showed no evidence of lymphadenopathy. His EGD done yesterday showed distal esophageal ulcerations. Biopsies were done and they currently pending. If these lesions return back as malignancy he will need referral to [facility] for his oncology care. I once again went to his room to try to meet him but he was gone to some type of cardiology procedure. I spoke with 2 people that was in his room. Exam - Constitutional Vitals: Period Temp Pulse Resp BP Sys/Noel Pulse Ox Last 24 Hr 97.1 F-98.5 F 85-95 15-20 105-133/59-083 95-100 Results - Labs CBC & BMP: 11/01/16 05:33 11/01/16 05:33 Quality Measures - VTE Contraindication to Pharmacological VTE Prophylaxis: Active Bleeding
--- NOTE | 2016-11-02 11:03 | Hospitalist Progress Note ---
Assessment and Plan - Time spent with patient Time spent with patient: Less than 30 minutes (1) Ulcerative esophagitis Status: Acute Assessment and plan: cardiomyopathy: Lexiscan completed this a.m. - Awaiting final reading; will continue current medication regimen; Anemia: Currently stable H&H at 9.0 and 33.1 MethamphaTamine abuse: Significant drug abuse; Agree with Cardiology services on consulting case management for assist with patient's insurance needs. Elevated LFT's : imrpoving labs: AST 39 and ALT 88 both down from AST 77 and ALT 112; [place] Assay was negative. Ulcerated esophagitis: GI scope: report ulcerative esophagitis secondary to GERD :; Truong's esophagus; distal esophageal ulcer within Truong's mucosa with a concern about dysplasia/carcinoma; and hiatal hernia. GI is currently following. Continue PPI therapy. Will Discuss with Dr Montelongo for any further recommendation. Current Visit: Yes (2) Anemia Status: Acute Current Visit: Yes (3) Cardiomyopathy Status: Acute Current Visit: Yes (4) Elevated LFTs Status: Acute Current Visit: Yes (5) Methamphetamine abuse Status: Chronic Current Visit: Yes Hospitalist: Subjective Interval history: 11/02/16 Mr Marino resting in bed feeling ok this morning; just return from having lexiscan procedure. Denies any SOB or pain. Exam - Constitutional Vitals: Period Temp Pulse Resp BP Sys/Noel Pulse Ox Last 24 Hr 97.1 F-98.5 F 85-95 15-20 105-133/59-083 95-100 General appearance: normal weight - Head Head exam: Present: normal inspection - Eye Eye exam: Present: EOMI Pupils: Present: THERESE - Neck Neck exam: Present: normal inspection - Respiratory Respiratory exam: Present: clear to auscultation bilaterally - Cardiovascular Cardiovascular exam: Present: regular rate and rhythm - GI/Abdominal GI/Abdominal exam: Present: normal bowel sounds, soft. Absent: tenderness, rebound - Extremities Exam Extremities exam: Present: edema (trace in lower extremities) - Neurological Exam Neurological exam: Present: alert, oriented X3 - Skin Skin exam: Present: normal color, warm, dry Results - Labs CBC & BMP: 11/01/16 05:33 11/01/16 05:33 Lab Results: I have reviewed the past 24 hour labs Quality Measures - VTE Contraindication to Pharmacological VTE Prophylaxis: Active Bleeding
[2016-11-02] MEDS ORDERED: REGADENOSON 0.4 MG/5 ML SYRINGE IV ONE (11:21)
--- NOTE | 2016-11-02 12:29 | Cardiology Progress Note ---
Cardiology - PN: Subj Interval history: Cardiology note Telemetry shows steady sinus rhythm Blood pressure 118/76 Decreased breath sounds but clear Regular rhythm no gallop or murmur Abdomen soft nontender No leg edema Abnormal Lexiscan cardiac perfusion study today. Normal perfusion. No ischemia. But LV dilated, severe global hypokinesis, EF 27% and increased end-diastolic 133 volume 292 mL's. Findings consistent with nonischemic cardiomyopathy. Medical therapy recommended Impression Nonischemic cardiomyopathy EF 25% by echo Cirrhosis Severe anemia, status post 5 unit transfusion Prior history of alcohol abuse CT abdomen negative for lymphadenopathy Plan Coreg 3.125 mg twice daily Lisinopril 2.5 mg daily Lasix 40 mg daily Add spironolactone 25 mg daily Exam (Progress Note) - Constitutional Vitals: Period Temp Pulse Resp BP Sys/Noel Pulse Ox Last 24 Hr 97.1 F-98.5 F 85-95 15-20 105-135/59-083 95-100 Result/EKG - Labs CBC & BMP: 11/01/16 05:33 11/01/16 05:33 Labs: Laboratory Results - last 24 hr 10/30/16 14:00 HIV-2 Antibody Conf Negative Quality Measures - VTE Contraindication to Pharmacological VTE Prophylaxis: Active Bleeding
[2016-11-02] MEDS: SPIRONOLACTONE 25 MG TABLET PO SCH (13:29)
[2016-11-02] MEDS: CARVEDILOL 3.125 MG TABLET PO SCH ×2 (13:29→22:08)
[2016-11-02] MEDS: LISINOPRIL 2.5 MG TABLET PO SCH (13:29)
[2016-11-02] MEDS: FUROSEMIDE 40 MG/4 ML VIAL IV SCH (13:29)
[2016-11-02] MEDS: PANTOPRAZOLE 40 MG VIAL IV SCH (13:32)
--- NOTE | 2016-11-02 15:34 | Nuclear Medicine Report ---
DATE: 11/02/2016 PROCEDURE: LEXISCAN CARDIOLITE GATED SPECT PERFUSION STUDY INITIAL IMPRESSION: 1. A 50-YEAR-OLD MAN WITH CARDIOMYOPATHY. 2. CONGESTIVE HEART FAILURE. 3. ABNORMAL EKG. 4. HYPERTENSION. FINAL IMPRESSION: ABNORMAL LEXISCAN CARDIOLITE PERFUSION STUDY. I. DESCRIPTION OF PROCEDURE: The patient received 10.0 mCi of Technetium-99m Cardiolite IV and rest images were obtained in the routine manner 20 minutes later. The patient then walked for 3 minutes on a low-level treadmill and received 0.4 mg of IV Lexiscan followed by 30.0 mCi of Technetium-99m Ca rdiolite IV and pharmacologic stress imaging was obtained in the routine manner 20 minutes later. Se [facility] electrocardiograms were performed. The initial blood pressure was 115/65 and it was 120/60 imme diately post Lexiscan. The peak heart rate was 87. II. RESULTS: The patient had no chest pain or arrhythmias, but did develop nausea during the Lexisc an infusion. The resting EKG demonstrates normal sinus rhythm with poor R-wave progression across th e precordium and diffuse ST-T wave changes. With pharmacologic stress, no diagnostic EKG changes occ urred. No arrhythmias. Review of the rotating planar images demonstrated increased lung cardiac uptake consistent with diast olic dysfunction. Left ventricle is dilated. Tomographic imaging demonstrates no evidence for ische emerson or scar. Tomographic images show severe global hypokinesis. The calculated ejection fraction is 27%. The end diastolic volume is markedly increased at 292 mL. III: FINAL IMPRESSION: 1. CLINICALLY AND ELECTROCARDIOGRAPHICALLY NEGATIVE. 2. POOR WORK CAPACITY. 3. SCINTIGRAPHICALLY NORMAL PERFUSION STUDY. 4. SEVERE GLOBAL LV DYSFUNCTION EJECTION FRACTION 27% CONSISTENT WITH NONISCHEMIC CARDIOMYOPATHY. IV. DISPOSITION: The patient has a normal perfusion pattern. However, the left side is markedly di lated with severe global hypokinesis. The ejection fraction is 27% and end diastolic volume is marke dly elevated at 292 mL. These findings are consistent with nonischemic cardiomyopathy. Continued med ical therapy and risk factor modification recommended. Procedure performed and interpreted at [facility] Department of Radiology.
--- NOTE | 2016-11-02 17:31 | Gastrointestinal Progress Note ---
Assessment and Plan (1) Iron deficiency anemia due to chronic blood loss Status: Acute Assessment and plan: Patient appears stable with no signs of active GI bleeding process. 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 Patient states that he has agreed to placement and then inpatient rehabilitation program for substance abuse. He needs colonoscopy to further evaluate iron deficiency anemia but would plan to do that as an outpatient as it appears he is ready for discharge. I will tentatively plan outpatient colonoscopy for 3 or 4 weeks. Current Visit: Yes Gastroenterology - PN: Subj Interval history: Patient feeling better with no current complaints. Tolerating regular diet. Lexiscan GXT results noted. Exam (Progress Note) - Constitutional Vitals: Period Temp Pulse Resp BP Sys/Noel Pulse Ox Last 24 Hr 97.1 F-98.5 F 87-102 18-20 105-135/59-81 95-100 General appearance: no acute distress - Head Head exam: Present: normocephalic, atraumatic - Eye Eye exam: Absent: scleral icterus - Respiratory Respiratory exam: Present: clear to auscultation bilaterally. Absent: wheezes - Cardiovascular Cardiovascular exam: Present: regular rate and rhythm. Absent: gallop, rubs - GI/Abdominal GI/Abdominal exam: Present: normal bowel sounds, other. Absent: distended, tenderness - Extremities Exam Extremities exam: Present: full ROM. Absent: edema - Neurological Exam Neurological exam: Present: alert, oriented X3, CN II-XII intact. Absent: motor sensory deficit - Psychiatric Psychiatric exam: Present: normal affect, normal mood - Skin Skin exam: Present: warm, dry Results - Labs CBC & BMP: 11/01/16 05:33 11/01/16 05:33
--- NOTE | 2016-11-02 19:20 | Pathology Report from [facility] ---
[facility] ACCESSION # : [id number] PATIENT NAME : Milton Guo ORDERING DR : KANG KARU MD CLINICAL HX: Anemia POST-OP DX: Esophageal ulcer SPECIMEN INFO: Biopsy esophageal ulcer GROSS DESCRIPTION: The specimen is received in formalin labeled with the patients name and consists of multiple fragments of pink-islas mucosal tissue measuring 1.5 x 0.5 cm. Submitted in one cassette. DIAGNOSIS FOR MILTON GUO: BIOPSY ESOPHAGEAL ULCER: Ulceration with marked suppuration. Focal intestinal metaplasia as may be seen in Barretts esophagitis; no dysplasia seen. Fungal stain negative. COLLECTED DATE: 11/01/2016 [facility] REPORT DATE: 11/02/2016 ELECTRONICALLY SIGNED BY: Arlen Henao M.D. 11/02/2016 - 12:14:55 [facility]
[2016-11-03] MEDS ORDERED: ACETAMINOPHEN 325 MG TABLET PO PRN ×2 (05:56→05:59)
[2016-11-03 06:30] LABS: Basophils # 0.1 10*3/uL (0.0-0.2); Basophils % 0.5 % (0.0-0.8); Calcium 8.7 MG/DL (8.5-10.1); Eosinophils # 0.4 10*3/uL (0.0-0.87); Eosinophils % 3.7 % (0.00-10.9); Hematocrit 33.8 VOL% (42.0-52.0); Hemoglobin 9.3 GM/DL (14.0-18.0); Immature Granulocytes % 0.7 %; Immature Granulocytes Absolute 0.07 #; Lymphocytes # 1.3 10*3/uL (1.4-4.0); Lymphocytes % 11.8 % (21.2-54.2); Mean Corpuscular HGB Conc 27.5 GM/DL (32-36); Mean Corpuscular Hemoglobin 19 PG (27-34); Mean Corpuscular Volume 69.4 FL (87-102); Mean Platelet Volume 9.8 FL (9.6-12.0); Monocytes # 0.8 10*3/uL (0.11-0.8); Monocytes % 7.9 % (1.7-12.7); NRBC # 0.03 10*3/uL; Neutrophils % 75.4 % (38.7-73.9); Osmolality,Calculated 287.1 MOS/KG (273-304); Platelet Count 359 T/CUMM (130-400); Potassium 3.9 MMOL/L (3.5-5.1); Red Blood Count 4.87 MC/CUMM (3.8-5.5); Red Cell Distribution Width 29.2 % (9.3-17.3); White Blood Count 10.6 T/CUMM (4-12)
[2016-11-03 08:12] VITALS: BP 115/75
[2016-11-03] MEDS: PANTOPRAZOLE 40 MG VIAL IV SCH (08:32)
[2016-11-03] MEDS: CARVEDILOL 3.125 MG TABLET PO SCH (08:32)
[2016-11-03] MEDS: SPIRONOLACTONE 25 MG TABLET PO SCH (08:32)
[2016-11-03] MEDS: LISINOPRIL 2.5 MG TABLET PO SCH (08:32)
[2016-11-03] MEDS: FUROSEMIDE 40 MG/4 ML VIAL IV SCH (08:34)
--- NOTE | 2016-11-03 10:33 | Discharge Summary ---
Hospital Course - Hospital Course Hospital Course: MR Marino presesnted with profound symptomatic anemia with a hemoglobin of 4.7 , jaundice, lower extremity edema and shortness of breath. He was transfused 5 units of PRBC and his shortness of breath resolved. He was evaluated with EGD, stress test, echo. The EGD (Tosha) showed ulcerations in the esophagus and the biopsy showed Paul's esophagus. He will be on Protonix, follow up with Dr Givens for surveillance EGD and for cscope to complete the work up for anemia. He has also been started on iron. The echo showed EF of 25%, moderate MR, severe TR and normal diastolic function. FOr his chronic systolic heart failure, he has been started on aldactone, lisinopril, coreg and lasix. He is well compensated. He will see Dr Grant in the clinic. His stress test showed no evidence of ischemia- this is a nonischemic cardiomyopathy. He was seen by [facility] for his anemia and suggestion of lymphadenopathy on outside CT. On repeat CT the lymph nodes were not appreciated. He has cirrhosis which is also a new diagnosis for him. He has a long history of alcoholism and meth use. His jaundice has improved since admission. He is going to [facility] in [place] after discharge today for rehab. He will also follow up with his PCP. - Time spent with patient Time with patient DS: Greater than 30 minutes (exam, discharge planning and coordination, medicine reconciliation, documentation.) Diagnosis - Discharge Diagnosis (1) Jaundice Status: Acute (2) Cardiomyopathy Status: Chronic (3) Lymphadenopathy Status: Ruled-out (4) Methamphetamine abuse Status: Chronic (5) Elevated LFTs Status: Resolved (6) Truong's esophageal ulceration Status: Acute (7) Splenomegaly Status: Acute (8) Cirrhosis Status: Acute (9) Iron deficiency anemia due to chronic blood loss Status: Acute Specialty Discharge - Follow Up or Referrals Follow up with: Milton Givens MD [Physician] - 2 Weeks (schedule out patient colonscope in 2-3 weeks) John Grant MD [Physician] - His, PCP [Other] - 1 Week Discharge Plan - Discharge Data Disposition: Disch To Home/Self Care Condition at Discharge: Stable Discharge Diet: heart healthy, low salt diet Activity: resume usual activities as tolerated - Discharge Medications New Ferrous Sulfate [Iron] 325 mg PO BID #60 tablet Furosemide Tab [Lasix Tab] 40 mg PO DAILY #30 tablet Multivitamin (Berocca) [Berocca] 1 tablet PO DAILY #30 tablet Pantoprazole Tab [Protonix Tab] 40 mg PO BID #60 tablet Spironolactone [Aldactone] 25 mg PO DAILY #30 tablet Carvedilol [Coreg] 3.125 mg PO BID #60 tablet Lisinopril [Prinivil] 2.5 mg PO DAILY #30 tablet - Follow Up or Referral Follow Up: Milton Givens MD [Physician] - 2 Weeks (schedule out patient colonscope in 2-3 weeks) - Forms/Instructions Instructions: Cirrhosis (DC), Abuse of Alcohol (DC), Methamphetamine Abuse (DC) , Anemia (DC) Additional Discharge Instructions: stop using drugs . Go to [facility] in [place] for rehab. Exam - Constitutional Vitals: Period Temp Pulse Resp BP Sys/Noel Pulse Ox Last 24 Hr 96.7 F-98.7 F 86-108 18-20 114-135/60-83 95-100 General appearance: normal weight, no acute distress - Head Head exam: Present: normocephalic, atraumatic - Eye Eye exam: Present: EOMI. Absent: scleral icterus Pupils: Present: THERESE - Respiratory Respiratory exam: Present: clear to auscultation bilaterally - Cardiovascular Cardiovascular exam: Present: regular rate and rhythm, systolic murmur - GI/Abdominal GI/Abdominal exam: Present: normal bowel sounds, soft. Absent: organomegaly, tenderness - Extremities Exam Extremities exam: Absent: edema - Neurological Exam Neurological exam: Present: alert, oriented X3 - Skin Skin exam: Present: normal color, warm, dry Discharge Results Procedures and tests throughout hospitalization: Pending Orders 11/04/16 04:00 Comp Blood Count Auto Diff IN AM Comprehensive Metabolic Panel IN AM 11/05/16 04:00 BMP w/ Mg [Basic Metabolic Panel w/Mg] IN AM Comp Blood Count Auto Diff IN AM Labs on day of discharge: Labs from last 24 hours 11/03/16 11/03/16 10/31/16 05:51 05:51 03:02 WBC 10.6 RBC 4.87 Hgb 9.3 L Hct 33.8 L MCV 69.4 L MCH 19 L MCHC 27.5 L RDW 29.2 H Plt Count 359 MPV 9.8 Neut % (Auto) 75.4 H Lymph % (Auto) 11.8 L [place] % (Auto) 7.9 Eos % (Auto) 3.7 Baso % (Auto) 0.5 Neut # (Auto) 8.0 H Lymph # (Auto) 1.3 L [place] # (Auto) 0.8 Eos # (Auto) 0.4 Baso # (Auto) 0.1 Immature Gran % 0.7 Nucleated RBC % 0.3 Immature Gran # 0.07 Nucleated RBCs # 0.03 Sodium 142 Potassium 3.9 Chloride 105 Carbon Dioxide 30 Anion Gap 10.9 BUN 20 H Creatinine 1.30 GFR Calculation 75 BUN/Creatinine Ratio 15.00 Glucose 129 H Calculated Osmolality 287.1 Calcium 8.7 Crossmatch See Detail DS: Provider Date of admission: 10/30/16 14:44 Primary care physician: . No PCP Attending physician on admission: Joan Montelongo MD Consults: 10/30/16 15:11 Consult to Physician [CONS] Routine Comment: anemia Consulting Provider: Agapito Hill Consult to Specialist Group: Hematology When should Consulting Provider be notified: Now Person Notified: spoke W/ staff @ dr hill office Date Notified: 10/31/16 Time Notified: 08:52 Consult Notification Comment: 10/30/16 15:54 Consult to Physician [CONS] Routine Comment: ? BX inguinal lymphadenopathy Consulting Provider: Buster Hardy Consult to Specialist Group: Surgery When should Consulting Provider be notified: Now Person Notified: saira Date Notified: 10/31/16 Time Notified: 09:10 10/31/16 09:16 Consult to Physician [CONS] Routine Comment: chf Consulting Provider: John Grant Person Notified: CIS Date Notified: 10/31/16 Time Notified: 09:22 10/31/16 10:46 Consult to Physician [CONS] Routine Comment: Consulting Provider: Milton Givens Consulting Provider Notified: Yes When should Consulting Provider be notified: Now Consult Notification Comment: consult called before transfer, got cancelled by mistake upon transfer, Charu Golden NP aware of consult 10/31/16 11:27 Consult to Case Mgmt/Social Srvs [CONS] Routine Reason for Case Mgmt/Social Srvs: Discharge Planning Other Consult Comment: noninsured, help with initiation of Mcare/Mcaid? Discharging clinician: Joan Montelongo MD
--- NOTE | 2016-11-03 10:54 | Cardiology Progress Note ---
Cardiology - PN: Subj Interval history: Cardiology note No chest pain or shortness of breath. Telemetry shows sinus rhythm no ectopy Blood pressure 110/70 O2 sat 98% room air Regular rhythm no gallop Decreased breath sounds but clear Abdomen soft No leg edema Lab data today Hemoglobin 9.3 hematocrit 33.8 white count 10.6 Sodium 142 potassium 3.9 chloride 105 CO2 30 BUN 20 creatinine 1.30 glucose 129 Impression Nonischemic cardia myopathy EF 25% by echo Cirrhosis Severe anemia, status post 5 unit transfusion Prior history alcohol abuse Recreational drug abuse with methamphetamine chronic Abnormal Lexiscan cardiac stress test--no scar or ischemia, but dilated LV EF 27 % and increased end-diastolic volume Plan Home per Dr. Montelongo Coreg 3.125 mg twice daily Increase lisinopril 2.5 mg twice daily Lasix 40 mg daily spironolactone 25 mg daily Exam (Progress Note) - Constitutional Vitals: Period Temp Pulse Resp BP Sys/Noel Pulse Ox Last 24 Hr 96.7 F-98.7 F 86-108 18-20 114-135/60-83 95-100 Result/EKG - Labs CBC & BMP: 11/03/16 05:51 11/03/16 05:51 Labs: Laboratory Results - last 24 hr 10/31/16 11/03/16 11/03/16 03:02 05:51 05:51 WBC 10.6 RBC 4.87 Hgb 9.3 L Hct 33.8 L MCV 69.4 L MCH 19 L MCHC 27.5 L RDW 29.2 H Plt Count 359 MPV 9.8 Neut % (Auto) 75.4 H Lymph % (Auto) 11.8 L [place] % (Auto) 7.9 Eos % (Auto) 3.7 Baso % (Auto) 0.5 Neut # (Auto) 8.0 H Lymph # (Auto) 1.3 L [place] # (Auto) 0.8 Eos # (Auto) 0.4 Baso # (Auto) 0.1 Immature Gran % 0.7 Nucleated RBC % 0.3 Immature Gran # 0.07 Nucleated RBCs # 0.03 Sodium 142 Potassium 3.9 Chloride 105 Carbon Dioxide 30 Anion Gap 10.9 BUN 20 H Creatinine 1.30 GFR Calculation 75 BUN/Creatinine Ratio 15.00 Glucose 129 H Calculated Osmolality 287.1 Calcium 8.7 Crossmatch See Detail Quality Measures - VTE Contraindication to Pharmacological VTE Prophylaxis: Active Bleeding Specialty Discharge - Follow Up or Referrals Follow up with: His, PCP [Other] - 1 Week Milton Givens MD [Physician] - 2 Weeks (schedule out patient colonscope in 2-3 weeks) John Grant MD [Physician] -
[2016-11-03] MEDS ORDERED: LISINOPRIL 2.5 MG TABLET PO SCH (21:00)
--- NOTE | 2016-11-07 08:19 | Physician Query Form ---
CLICK EDIT DOCUMENT TO SELECT QUERY ANSWER --> OK --> SIGN Aminata Estrada RN [employer] W) [phone] (f) [phone] [email or web address]: Make your selection(s) from the choices in EACH section by typing an "x" and enter comments in the comment section. Please use your independent medical judgment in providing your response. This request does not imply that any particular answer is desired or expected. CLINICAL INDICATORS: (Providers should not edit this section) Based on documentation of "Acute CHF" "For his chronic systolic heart failure, he has been started on aldactone, lisinopril, coreg and lasix." Echo shows EF of 25%. BNP of 1287. Treated with IV Lasix. Please provide further specificity regarding CHF. ACUITY: ( ) Acute ( ) Chronic ( x) Acute on Chronic ( ) Clinicallly unable to determine COMMENTS: PLEASE ALSO DOCUMENT RESPONSE IN PROGRESS NOTES AND/OR DISCHARGE SUMMARY Use of terms such as suspected, likely, or probable (associated with a specific diagnosis that is being evaluated, monitored, or treated as if it exists) are acceptable and can be restated in the discharge summary if not ruled out. [facility]
== END 2016-11-03 12:41 | disposition other institution (70) | DRG 811 ==
LOC: N.ED 13:15 → N.EDINP 14:44 → N.CC 15:55 → N.TELEN 10-31 10:23
PROVIDERS: ADMIT Internal Medicine; ATTEND Internal Medicine